=== PATIENT | male | born 1955 | race Caucasian/White ===

== ENCOUNTER 2018-01-14 17:01 | Outpatient (REF) | payer MEDICAID, SELFPAY ==
[2018-01-14 18:51] LABS: ALT 38 U/L (12-78); AST 21 U/L (15-37); Albumin 3.9 g/dL (3.4-5.0); Alkaline Phosphatase 109 U/L (46-116); BUN 9 mg/dL (7-18); Bilirubin, Total 0.9 mg/dL (0.2-1.0); CREATININE 0.73 mg/dL (0.70-1.30); Chloride 99 mmol/L (98-107); Glucose 100 mg/dL (70-100); Potassium 3.8 mmol/L (3.5-5.1); Sodium 136 mmol/L (136-145); Total Protein 7.5 g/dL (6.4-8.2)
== END 2018-01-14 17:21 ==
LOC: NCHCN 17:01
PROVIDERS: PCP Nurse Practitioner Family; Visit Provider Nurse Practitioner Family
DX: F10.10 Alcohol abuse, uncomplicated (principal)
CPT/HCPCS: 80053

== ENCOUNTER 2018-01-20 07:03 | Day surgery (SDC) | payer MEDICAID, SELFPAY ==
--- NOTE | 2018-01-20 06:24 | W.COLOREPORT ---
Date of service: 01/20/18 Time of Service: 08:30 Colonoscopy Report Date of procedure: 01/20/18 Pre-op diagnosis general: Screening and family history Post-op diagnosis procedure note: same (and internal hemorrhoids) Procedure: Colonoscopy Surgeon: Mima Issa Anesthesia proc note operative: MAC (Junior Oneal CRNA/ ASA 2) Estimated blood loss (mL): 0 Pathology: none sent Complications: None Disposition: same day Indications: Mr. Mendoza is a pleasant 62-year-old gentleman who was seen in the office to discuss a colonoscopy. His last colonoscopy was in 2009 and was normal. He has a family history of colon cancer. Risks, benefits, and complications were reviewed with him and he wished to proceed. No guarantees were given or implied. Prep: Miralax/Dulcolax Procedure Start Time: 08:30 Procedure End Time: 08:48 Retraction Time: 11 minutes Findings: Grade 1 internal hemorrhoids otherwise normal colonoscopy Procedure Description: After informed consent was obtained the patient was taken to the procedure room and placed in a left decubitous position. Monitors were applied and a time out was done. The patients name, date of , procedure, allergies to medications and metal in their body was reviewed. The patient was then sedated. Once sedated and comfortable a rectal exam was done. External exam was normal. Internal exam revealed a normal sphincter tone and no palpable masses. The prostate was smooth. The scope was then introduced and retroflexed. Grade 1 internal hemorrhoids were identified. The scope was then advanced to the cecum without difficulty. The TI and appendiceal orifice were identified. The prep was adequate. The scope was then slowly retracted over 11 minutes back into the rectum. The scope was removed and the patient was woken up and taken back to Same day surgery in stable condition. The patient tolerated the procedure well and there were no immediate complications. Follow up: The patient should follow up in 10 years unless they develop changes in bowel habits or other new gastrointestinal complaints.
--- NOTE | 2018-01-20 06:26 | PDOC.DSDIS_ITS ---
Discharge Plan Disposition Patient Disposition: HOME Condition: Good Discharge Details Reason For Visit: Colonoscopy Attending Provider: Mima Issa Primary Care Provider: Massiel Blanc Home Meds and New Rx's Prescriptions: Continue aspirin 325 mg tablet 325 mg PO DAILY RF: 0 multivitamin [Daily Multiple] 1 EACH tablet 1 ea PO DAILY RF: 0 ibuprofen 800 MG tablet 800 mg PO TID PRNRF: 0 BRONCHAID 60 mg PO DAILY RF: 0 diphenhydramine HCl 50 MG capsule 50 mg PO QID PRNQty: 25 RF: 0 Discontinued polyethylene glycol 3350 17 gram powder in packet 255 g PO DAILY Qty: 15 RF: 0 bisacodyl [Dulcolax (bisacodyl)] 5 mg tablet,delayed release (DR/EC) 5 mg PO ONCE Qty: 4 RF: 0 Discharge Instructions Instructions: Colonoscopy (DC), Hemorrhoids (DC) Additional Instructions: Findings: internal hemorrhoids Follow up: 10 years Please call if you develop: fevers >101.5 Nausea or Vomiting Abdominal pain that is not transient 1. Because there will be medication in your system for the next 24 hours, you may feel a little sleepy. Your coordination will be affected. Therefore: a. Do not drive or operate dangerous equipment for 24 hours. b. Do not drink alcohol beverages for 24 hours (not even beer). c. Plan to go home and rest for the day. 2. Generally there are no restrictions on your activity after a day or so has gone by, but you may feel a bit fatigued for a few days. 3 After you arrive home you may have a light meal and return to a normal diet as you can tolerate it without feeling sick to your stomach. 4. After surgery, you may feel pain or discomfort. This should be only transient , but if it persists please contact your doctor. 5. If there are any questions regarding the findings of your procedure, please feel free to contact your doctor. 6. If you are unable to contact your doctor with a problem, contact the hospital at [phone]. 7. Continue all your regular medications unless directed otherwise. I understand the above instructions and have no questions. Signature of Patient or Responsible Adult Escort Date/Time Name of Responsible Adult Escort Signature of Nurse Date/Time Activity:: Activity as Tolerated Diet:: high fiber diet Discharge Orders Discharge Orders: Discharge Order (Routine); Ordered 01/20/18 Ordered By: Mima Issa DS: Diagnosis Discharge Diagnosis (1) Internal hemorrhoids: Status: Acute (2) S/P colonoscopy: Status: Acute (3) Family history of colon cancer in father: Status: Chronic
--- NOTE | 2018-01-20 06:36 | HPE_ITS ---
Date of service: 01/20/18 Assessment and Plan (1) Family history of colon cancer in father: Current visit: No Status: Chronic (2) Encounter for screening colonoscopy: Current visit: No Status: Acute P\\ Colonoscopy under sedation Risks, benefits and complications have been reviewed. Complications include but are not limited to bleeding, pain, perforation, missed small lesion/ polyp, sore throat, aspiration and adverse reaction to the medications. Questions were entertained and answered to their satisfaction and they wished to proceed. No guarantees were given or implied. History of Present Illness Narrative: 61 y/o male with history of Factor V Leiden and JAUN presents for colonoscopy screening pre-op. His last screening was in September 2009, with Dr. Roberts which was unremarkable. He is only a 5 year follow up plan due to his positive family history of colon cancer in his father. He denies any changes in bowel habits including bloody or black tarry stools, abdominal pain, diarrhea or constipation. He denies constitutional symptoms. He recently had carpal tunnel surgery on 2017. He is currently taking aspirin 325mg daily and was instructed he must continue this for a total of 5 weeks following his surgery. He denies chest pain, palpitations, dyspnea or dyspnea with exertion. He denies prior history or family history of adverse reactions or complications with anesthesia. There have been no changes in his health since he was last seen. Review of Systems ENT Denies dysphagia Cardiovascular Denies rapid heart rate and Denies irregular heart rhythm Respiratory Denies cough Gastrointestinal Denies abdominal pain, Denies dysphagia and Denies nausea PFSH Family History Other Alcohol abuse Colon cancer Pancreatitis Medical History Alcohol abuse Anemia Avascular necrosis of bones of both hips Breast pain, left Carpal tunnel syndrome, bilateral Degenerative joint disease of both hips Depressive disorder Diverticulitis Factor V Leiden Family history of colon cancer Hemorrhoids Hx of skin cancer, basal cell Hyperlipidemia Impotence Left foot pain Opioid abuse Rhinitis, allergic Right shoulder pain Sinusitis Sleep apnea Tobacco use Social History Smoking/Tobacco Use Status: Former Tobacco Use Surgical History excision skin lesion right foot surgery right toe fusion Meds Home Medications Medication Instructions Recorded Confirmed Type diphenhydramine HCl 50 mg PO QID PRN #25 cap 07/22/14 01/20/18 Rx Bronchaid 60 mg PO DAILY 03/29/15 01/20/18 History ibuprofen 800 mg PO TID PRN tab-cap 03/29/15 01/20/18 History multivitamin [Daily Multiple 1 ea PO DAILY 03/29/15 01/20/18 History Vitamin] aspirin 325 mg tablet 325 mg PO DAILY 12/06/17 01/20/18 History bisacodyl 5 mg tablet,delayed 5 mg PO ONCE #4 tab 12/06/17 12/06/17 Rx release polyethylene glycol 3350 17 gram 255 g PO DAILY #15 each 12/06/17 12/06/17 Rx oral powder packet Allergies Allergy/AdvReac Type Severity Reaction Status Date / Time ragweed pollen Allergy Mild Unverified 01/20/18 07:17 sulfamethoxazole Allergy Unknown Unverified 01/20/18 07:17 [From Bactrim] trimethoprim [From Bactrim] Allergy Unknown Unverified 01/20/18 07:17 cephalexin Allergy Skin Rash Unverified 01/20/18 07:17 epinephrine [From Tasha-Phrine] Allergy Unverified 01/20/18 07:17 almonds Allergy Unknown Uncoded 01/20/18 07:17 Exam Const General: healthy appearing Resp Effort & Inspection: normal respiratory effort Auscultation: clear to auscultation bilaterally Cardio Rate: regular rate Rhythm: regular rhythm Heart Sounds: no click, no gallops and no murmurs
[2018-01-20 07:17] VITALS: BP 128/83; PULSE 96; RESP 20; TEMP 37.1; O2SAT 97
[2018-01-20] MEDS: Lactated Ringers 1,000 ML 80 ML IV (07:42)
[2018-01-20 09:46] VITALS: BP 130/70; PULSE 91; RESP 16; TEMP 37; O2SAT 95
== END 2018-01-20 09:55 | disposition home or self-care (01) ==
LOC: SUR 07:04
PROVIDERS: PCP Nurse Practitioner Family; Visit Provider Surgery
PROC: 0DJD8ZZ Inspection of Lower Intestinal Tract, Via Natural or Artificial Opening Endoscopic (ICD-10-PCS; CPT 45378; principal; 2018-01-20 08:30)
DX: Z12.11 Encounter for screening for malignant neoplasm of colon (principal); Z80.0 Family history of malignant neoplasm of digestive organs; K64.0 First degree hemorrhoids; G47.33 Obstructive sleep apnea (adult) (pediatric)
CPT/HCPCS: 45378; NC

== ENCOUNTER 2018-07-01 01:37 | Outpatient (CLI) | payer MEDICAID, SELFPAY ==
[2018-07-01 08:50] LABS: Abs Immature Grans 0.01 k/cumm (0.0-0.09); Absolute Basophil Count 0.01 k/cumm (0.0-0.2); Absolute Eosinophil Count 0.16 k/cumm (0.0-0.7); Absolute Lymphocyte Count 2.17 k/cumm (1.2-3.4); Absolute Monocyte Count 0.75 k/cumm (0.11-0.7); Basophils % 0.2; Eosinophils % 2.8; HCT 40.5 % (40.0-50.0); HGB 13.7 g/dL (13.5-17.5); Immature Grans % 0.2; Lymphocytes % 38.1; Mean Corp. HGB Concentration 33.8 g/dL (32.0-36.0); Mean Corpuscular Hemoglobin 32.7 pg (27.0-33.0); Mean Corpuscular Volume 96.7 fL (80-95); Mean Platelet Volume 9.1 fL (8.0-11.0); Monocytes % 13.2; Neutrophils % 45.5; Platelet Count 240 x1000/uL (130-400); RBC 4.19 m/cumm (4.50-6.00); RBC Distribution Width 11.9 % (11.8-14.1)
[2018-07-01 09:56] LABS: ALT 31 U/L (12-78); AST 20 U/L (15-37); Albumin 3.8 g/dL (3.4-5.0); Alkaline Phosphatase 77 U/L (46-116); Anion Gap 10.7 mmol/L (3-11); BUN 22 mg/dL (7-18); Bilirubin, Total 0.6 mg/dL (0.2-1.0); CO2 26.3 mmol/L (21.0-32.0); CREATININE 0.96 mg/dL (0.70-1.30); Calcium 9.1 mg/dL (8.5-10.1); Chloride 105 mmol/L (98-107); Cholesterol 231 mg/dL (50-200); Glucose 93 mg/dL (70-100); HDL Cholesterol 61 mg/dL (40-60); LDL CHOLESTEROL 147 mg/dL (<100); Potassium 4.4 mmol/L (3.5-5.1); Sodium 142 mmol/L (136-145); Total Protein 6.9 g/dL (6.4-8.2); Triglyceride 117 mg/dL (30-150)
== END 2018-07-01 01:57 ==
PROVIDERS: PCP Nurse Practitioner Family; Visit Provider Nurse Practitioner Family
DX: H53.2 Diplopia (principal); M62.830 Muscle spasm of back; Z00.00 Encounter for general adult medical examination without abnormal findings
CPT/HCPCS: 36415; 80053; 80061; 83721; 85025

== ENCOUNTER 2018-07-24 16:37 | Outpatient (REF) | payer MEDICAID, SELFPAY ==
[2018-07-24 20:11] LABS: Absolute Basophil Count 0.02 k/cumm (0.0-0.2); Absolute Eosinophil Count 0.19 k/cumm (0.0-0.7); Absolute Lymphocyte Count 2.58 k/cumm (1.2-3.4); Absolute Monocyte Count 0.59 k/cumm (0.11-0.7); Basophils % 0.4; Eosinophils % 3.4; HCT 38.1 % (40.0-50.0); HGB 12.6 g/dL (13.5-17.5); Lymphocytes % 46.2; Mean Corp. HGB Concentration 33.1 g/dL (32.0-36.0); Mean Corpuscular Hemoglobin 32.5 pg (27.0-33.0); Mean Corpuscular Volume 98.2 fL (80-95); Mean Platelet Volume 10.3 fL (8.0-11.0); Monocytes % 10.6; Neutrophils % 39.4; Platelet Count 232 x1000/uL (130-400); RBC 3.88 m/cumm (4.50-6.00); RBC Distribution Width 11.8 % (11.8-14.1); White Blood Cell Count 5.58 k/cumm (4.4-10.8)
[2018-07-24 22:00] LABS: ALT 34 U/L (12-78); AST 19 U/L (15-37); Alkaline Phosphatase 65 U/L (46-116); Anion Gap 9.6 mmol/L (3-11); BUN 10 mg/dL (7-18); Bilirubin, Total 0.7 mg/dL (0.2-1.0); CO2 26.4 mmol/L (21.0-32.0); CREATININE 0.79 mg/dL (0.70-1.30); Calcium 9.1 mg/dL (8.5-10.1); Chloride 102 mmol/L (98-107); Folate 18.6 ng/mL (8.6-20.0); Glucose 84 mg/dL (70-100); Potassium 4.9 mmol/L (3.5-5.1); Sodium 138 mmol/L (136-145); Total Protein 6.8 g/dL (6.4-8.2); Vitamin B12 342 pg/mL (193-986)
[2018-07-24 22:53] LABS: Albumin 3.9 g/dL (3.4-5.0)
[2018-07-27 13:00] LABS: HIV-1/2 Ag & Ab Screen Negative (NEGAT)
[2018-07-28 10:45] LABS: HBs Antibody, Quant <3.1 mIU/mL; Hepatitis B Surface Ab Negative
[2018-07-28 11:00] LABS: Hepatitis C Ab w Rflx HCV PCR Negative (NEGAT)
[2018-07-28 11:13] LABS: Hepatitis B Surface Ag Negative (NEGAT)
[2018-07-28 11:46] LABS: Syphilis Serology (RPR) Negative (Negative)
[2018-07-28 13:46] LABS: Chlamydia Result Negative; GC Result Negative; Specimen Description URINE
== END 2018-07-24 16:57 ==
LOC: NCHCN 16:37
PROVIDERS: PCP Nurse Practitioner Family; Visit Provider Nurse Practitioner Family
DX: D53.9 Nutritional anemia, unspecified (principal); Z11.59 Encounter for screening for other viral diseases; Z11.4 Encounter for screening for human immunodeficiency virus [HIV]; Z11.3 Encounter for screening for infections with a predominantly sexual mode of transmission; Z13.228 Encounter for screening for other metabolic disorders; Z13.0 Encounter for screening for diseases of the blood and blood-forming organs and certain disorders involving the immune mechanism
CPT/HCPCS: 80053; 86706; 86803; 87340; 87389; 87491; 87591; 82607; 82746; 85025; 86592

== ENCOUNTER 2018-08-07 10:31 | Outpatient (REF) | payer MEDICAID, SELFPAY ==
[2018-08-07 13:31] LABS: Abs Immature Grans 0.01 k/cumm (0.0-0.09); Absolute Basophil Count 0.03 k/cumm (0.0-0.2); Absolute Eosinophil Count 0.27 k/cumm (0.0-0.7); Absolute Lymphocyte Count 2.14 k/cumm (1.2-3.4); Absolute Monocyte Count 0.83 k/cumm (0.11-0.7); Absolute Neutrophil Count 1.98 k/cumm (1.2-6.7); Basophils % 0.6; Eosinophils % 5.1; HGB 12.7 g/dL (13.5-17.5); Immature Grans % 0.2; Lymphocytes % 40.7; Mean Corp. HGB Concentration 33.4 g/dL (32.0-36.0); Mean Corpuscular Hemoglobin 32.7 pg (27.0-33.0); Mean Corpuscular Volume 97.9 fL (80-95); Mean Platelet Volume 9.6 fL (8.0-11.0); Monocytes % 15.8; Neutrophils % 37.6; Platelet Count 239 x1000/uL (130-400); RBC 3.88 m/cumm (4.50-6.00); White Blood Cell Count 5.26 k/cumm (4.4-10.8)
[2018-08-07 14:11] LABS: Vitamin B12 389 pg/mL (193-986)
[2018-08-07 14:14] LABS: Folate > 20.0 ng/mL (8.6-20.0)
== END 2018-08-07 10:51 ==
LOC: NCHCN 10:31
PROVIDERS: PCP Nurse Practitioner Family; Visit Provider Nurse Practitioner Family
DX: D53.9 Nutritional anemia, unspecified (principal); F10.11 Alcohol abuse, in remission; D68.51 Activated protein C resistance
CPT/HCPCS: 81240; 85300; 85303; 85306; 85610; 85613; 85730; 85732; 86147; 81241; 82607; 82746; 85025; 85240; 85379

== ENCOUNTER 2019-01-12 14:10 | Outpatient (CLI) | payer MEDICAID, SELFPAY ==
--- NOTE | 2019-01-12 12:19 | DI.RAD_ITS ---
EXAM: XR WRIST LT COMP NAVICULAR INDICATION: PAIN AND SWELLOING LT WRIST M25.532, 6-8 WEEKS AFTER FALL ONTO OUTSTRECHED. COMPARISON: No exams were available for comparison TECHNIQUE: 2D digital imaging was performed. FINDINGS: There is a small osseous density adjacent to the distal and radial aspect of the scaphoid. This is i ndeterminate but a small avulsed fracture fragment cannot be excluded. No other fractures or disloca tions are present. Moderate degenerative changes are seen at the 1st carpometacarpal joint and the a rticulation between the scaphoid and the quadrangular bones. Vascular calcifications are present. IMPRESSION: 1. Small ossific density adjacent to the distal and radial aspect of the scaphoid. This is age indet erminate. An avulsed fracture fragment cannot be excluded. 2. Degenerative changes seen in the left wrist.
== END 2019-01-12 14:30 ==
PROVIDERS: PCP Nurse Practitioner Family; Visit Provider Nurse Practitioner Family
DX: M25.532 Pain in left wrist (principal); M19.032 Primary osteoarthritis, left wrist
CPT/HCPCS: 73110

== ENCOUNTER 2019-05-18 07:22 | Day surgery (SDC) | payer MEDICAID, SELFPAY ==
[2019-05-18 07:37] VITALS: BP 107/64; PULSE 73; RESP 16; TEMP 36.4; O2SAT 96
[2019-05-18] MEDS: Lactated Ringers 1,000 ML 80 ML IV (08:27)
--- NOTE | 2019-05-18 09:20 | SUR.PHASEI ---
Verbal order from Dr Padgett for pt to receive Ancef as prescribed, despite stated allergy. Pharmacy phone and they will enter.
[2019-05-18] MEDS: ceFAZolin 2 GM/50 ML BAG IVPB (10:03)
--- NOTE | 2019-05-18 11:00 | PDOC.DSDIS_ITS ---
Discharge Plan Disposition Patient Disposition: HOME Condition: Good Discharge Details Reason For Visit: L Trapezial resectional arthroplasty. Attending Provider: Yohan Padgett Primary Care Provider: Hema Godwin Home Meds and New Rx's Prescriptions: New oxycodone-acetaminophen 5-325 mg tablet 1 tab PO Q6H PRN (Reason: pain) Qty: 10 RF: 0 Continued omega-3 fatty acids [Fish Oil Concentrate] 1,000 mg capsule 1,000 mg PO DAILY RF: 0 elderberry fruit 200 mg capsule 200 mg PO DAILY RF: 0 prednisone 5 mg tablet 5 mg PO DAILY Qty: 30 RF: 1 multivitamin [Daily Multiple] 1 EACH tablet 1 ea PO DAILY RF: 0 ibuprofen 800 MG tablet 800 mg PO TID PRNRF: 0 BRONCHAID 60 mg PO DAILY RF: 0 aspirin 81 mg Tablet,Chewable 81 mg PO PRN PRNRF: 0 Discharge Instructions Additional Instructions: Elevate L hand above heart level as much as possible for next 48 hours. Wiggle fingers L hand 10 times/hour when awake to prevent swelling. Keep dressings and splint dry and in place until return. Return to 's office in 2 weeks. Take ibuprofen 800 mg 3 times/day to decrease inflammation and pain. Take oxycodone for breakthru pain, if needed. Referrals: Yohan Padgett MD [ [facility] STAFF PHYSICIAN] - (f/u in 2 weeks) Equipment/Supplies: Splint Activity:: Activity as Tolerated Remove Dressings/Wound Care:: Do Not Remove Shower/Bathe:: Cover Diet:: As Tolerated Discharge Orders Discharge Orders: Discharge Order (Routine); Ordered 05/18/19 Ordered By: Yohan Padgett DS: Diagnosis Discharge Diagnosis (1) Arthritis of carpometacarpal (CMC) joint of left thumb: Status: Acute
[2019-05-18 11:25] VITALS: BP 122/74; PULSE 79; RESP 18; TEMP 36.3; O2SAT 98
[2019-05-18 11:30] VITALS: BP 142/68; PULSE 75; RESP 14; TEMP 36.3; O2SAT 98
[2019-05-18 11:35] VITALS: BP 148/91; PULSE 70; RESP 14; TEMP 36.3; O2SAT 97
[2019-05-18 12:24] VITALS: BP 113/61; PULSE 68; RESP 16; TEMP 37; O2SAT 96
--- NOTE | 2019-05-19 11:33 | ROE_ITS ---
DATE OF PROCEDURE: May 18, 2019 PREOPERATIVE DIAGNOSIS: Osteoarthritis of the CMC joint, left thumb. POSTOPERATIVE DIAGNOSIS: Same. PROCEDURE: Left trapezial resection arthroplasty. Application of short-arm radial thumb spica splin t. ANESTHESIA: IV Regional, Eliot Montero CRNA SURGEON: Yohan Padgett M.D. CONDUIT BENDER: Carroll Beatty INDICATIONS: This is a 63-year-old white male with endstage osteoarthritis of the CMC joint of his l eft thumb. He has reached a point where the pain is limiting use of his left hand. Splinting is no longer helping. Trapezial resection arthroplasty was recommended to alleviate his pain and hopefully improve the function in his left hand. The risks and complications of the procedure have been expla ined to the patient in detail preoperatively. PROCEDURE: The patient was taken to the operating room on 05/18/2019 where he was placed supine on e operating table. An IV regional anesthetic was administered to the left upper extremity. Once goo d anesthesia was obtained, the left hand, wrist and forearm were prepped and draped free in the usual sterile fashion. I made an incision directly over the extensor tendons of the first dorsal extensor compartment at the base of the thumb metacarpal. The incision was carried down through the skin and subcu to the tendo ns. The incision was about three inches in length. An incision was made then just ulnar to the exte nsor tendons through the capsule of the CMC joint. The trapezium was subperiosteally exposed. Usin g an oscillating saw, I transected the trapezium parallel to its proximal base. I left a one millime ter wafer of trapezial bone to articulate with the scaphoid. Using the oscillating saw and then a all osteotome and a mallet, I was able to resect the remainder of the trapezium in a piecemeal fashio n. The wound was irrigated with saline solution. A pursestring suture was used to bring the capsule in approximation between the thumb metacarpal and the remainder of the trapezium. The capsule of th e CMC joint was repaired with interrupted [id number] sutures of #2-0 Vicryl suture. The thumb m etacarpal was then held in extension and then a tenodesis of the extensor pollicis brevis and abducto r pollicis longus to the capsule was performed with interrupted spuglv-um-swsli sutures of #2-0 Vicry l. I checked the tenodesis and passively I was able to bring the thumb tip to the base of the little finger, indicating that the tenodesis was tensioned properly. The wound margins were infiltrated wi th 0.5% Marcaine with an epinephrine solution. The subcu was approximated with a few interrupted #2- 0 Vicryl sutures. The skin edges were approximated with a running subcuticular suture of #4-0 Monocr yl. This was supplemented by tissue glue and Steri-Strips. The wound was dressed with Xeroform gauz e, sterile gauze 4x4's, ABD pads and wrapped with a Kerlix bandage. A fiberglass radial thumb spica splint was fashioned and was applied with a 3-inch ISABEL bandage to support the thumb. The tourniquet was released. IV regional anesthesia was reversed without complication. There was no breakthrough b leeding to the dressings. The patient was discharged to the Day Surgery Unit in good condition. The patient was discharged home from the Day Surgery Unit when fully recovered from his IV regional a nesthesia. He was given instructions to try to elevate his left hand above heart level as much as po ssible for the next 48 hours. He was encouraged to wiggle his fingers ten times an hour while awake to prevent swelling. He is to keep the dressings and splint dry and in place until he follows up lyndon flores in two weeks in the office. He will continue taking ibuprofen 800 mg at home three times a day to help with inflammation and swelling. He was given a prescription for breakthrough pain of Hydroco done with APAP 5/325, one tablet every six hours, if needed.
== END 2019-05-18 12:50 | disposition home or self-care (01) ==
PROVIDERS: PCP Nurse Practitioner Family; Visit Provider Orthopaedic Surgery
PROC: (CPT 25447; principal; 2019-05-18 08:30)
DX: M18.32 Unilateral post-traumatic osteoarthritis of first carpometacarpal joint, left hand (principal); T14.90XS Injury, unspecified, sequela; W19.XXXS Unspecified fall, sequela; G47.33 Obstructive sleep apnea (adult) (pediatric)
CPT/HCPCS: 25447; J0690; J1885; J2250

== ENCOUNTER 2019-07-23 11:21 | Emergency (ER) | payer MEDICAID, SELFPAY ==
[2019-07-23 11:32] VITALS: BP 172/93; PULSE 91; RESP 16; TEMP 37.1; O2SAT 97
--- NOTE | 2019-07-23 11:46 | ED.GENADUL_ITS ---
Discharge Plan Disposition Patient Disposition: HOME Condition: Good Discharge Details Chief Complaint: Abd Prob Clinical Impression: Hernia, inguinal, left, Urinary hesitancy Primary Care Provider: Hema Godwin ED Provider: Isaac Baez Home Meds and New Rx's Prescriptions: New tamsulosin [Flomax] 0.4 mg capsule 0.4 mg PO DAILY 14 Days Qty: 14 RF: 0 Continued omega-3 fatty acids [Fish Oil Concentrate] 1,000 mg capsule 1,000 mg PO DAILY RF: 0 elderberry fruit 200 mg capsule 200 mg PO DAILY RF: 0 prednisone 5 mg tablet 5 mg PO DAILY Qty: 30 RF: 1 multivitamin [Daily Multiple] 1 EACH tablet 1 ea PO DAILY RF: 0 ibuprofen 800 MG tablet 800 mg PO TID PRNRF: 0 BRONCHAID 60 mg PO DAILY RF: 0 oxycodone-acetaminophen 5-325 mg tablet 1 tab PO Q6H MDD 20 PRN (Reason: pain) Qty: 10 RF: 0 aspirin 81 mg Tablet,Chewable 81 mg PO PRN PRNRF: 0 Discharge Instructions Instructions: Enlarged Prostate (BPH) (ED), Inguinal Hernia (ED) Additional Instructions: At this time your hernia shows no evidence of incarceration or strangulation which are the concerning things that we talked about. Please avoid any significant heavy lifting greater than 10 pounds. Please avoid any straining. If you notice the hernia gets worse, feels like it gets stuck, becomes red or painful return immediately. We have placed a surgical referral for potential future surgical options. Their office will contact you. In regards to your mild urinary hesitancy, please take the Flomax to see if this makes any significant change and follow-up closely with your primary care provider. I suspect this is from your mild prostate hypertrophy that I could feel on exam. If you notice any worsening of your symptoms, or any new symptoms such as vomiting, diarrhea, fever, chills, shortness of breath, chest pain, numbness, weakness, or fainting , please return immediately to the emergency department for reevaluation. Please follow up with your primary care provider as soon as possible for reassessment and reevaluation. As always, it was a pleasure participating in your medical care today. 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 Patient states that over the last 2 to 3 weeks he has noticed mild bulge in the left groin that comes and goes, often when standing or straining. He is able to push it back in, and does well with this. He has seen his primary care provider who felt that it was a hernia. As it has continued to want to be checked out today. Currently he states that the bulge is not bad, he denies any significant pain, he has been having regular bowel movements, no diarrhea no blood, no fever, chills, night sweats or weight loss. He denies any blood in his stool. He denies any melena. On a seemingly unrelated topic the patient also does note that over the last few months to years he has had mild increase in hesitancy for urination, as well as slight difficulty controlling his stream. He denies any recent prostate exams. He denies any history of prostate issues. He denies any dysuria, flank pain, hematuria, fever or chills. No other complaints at this time. No other modifying factors. He denies chest pain, shortness of breath, vomiting, change in bowel movement nature, redness at the site of the bulge on the left, or other complaints. Physical exam demonstrates an easily reducible mild bulge in the left groin, it extends midway down the left inguinal canal, does not extend into the scrotum with Valsalva. No scrotal mass. Normal testicles, no signs of testicular torsion clinically. Normal cremasteric reflex. Left groin minimal mass is easily reducible and nontender. No bowel sounds in the groin. Prostate exam demonstrates mild prostate hypertrophy, but no significant nodules that I can appreciate or other abnorma lities currently. Remainder of exam is otherwise unremarkable. At this time signs and symptoms are clinically consistent with a mild reducible nonincarcerated non-strangulated inguinal hernia that is likely just omentum and not bowel. In conjunction with mild prostate hypertrophy. No red flag symptoms of weight loss fever chills night sweats to suggest mass cancer or malignancy. I did discuss imaging options for the patient and at this time through notable discussion, weighing the risks and benefits, and a shared decision making process the patient has refused imaging at this time. Patient is of an appropriate age to make decisions. The patient is of sound mind, appears clinically sober, and has capacity to make decisions by my clinical exam. Respecting the patient's wishes we will hold off on imaging. Additionally currently I see no current clinical indication for emergent imaging. Patient will be discharged home, we will place surgical referral for potential future surgical evaluation and management of the mild inguinal hernia. Also start the patient on Flomax, and recommend close follow-up with his PCP. Discussed red flags which to return. I have extensively reviewed the treatment plan and discharge instructions with the patient. I have addressed all patient concerns at this time. The patient was made aware of what symptoms to monitor for that would warrant a return to the emergency department. Discussed the plan with the patient, they demonstrate verbal understanding and agreement with our assessment and plan at this time. HPI General Date/Time Provider Initiated Documentation: 07/23/19 11:30 . 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 Patient states that over the last 2 to 3 weeks he has noticed mild bulge in the left groin that comes and goes, often when standing or straining. He is able to push it back in, and does well with this. He has seen his primary care provider who felt that it was a hernia. As it has continued to want to be checked out today. Currently he states that the bulge is not bad, he denies any significant pain, he has been having regular bowel movements, no diarrhea no blood, no fever, chills, night sweats or weight loss. He denies any blood in his stool. He denies any melena. On a seemingly unrelated topic the patient also does note that over the last few months to years he has had mild increase in hesitancy for urination, as well as slight difficulty controlling his stream. He denies any recent prostate exams. He denies any history of prostate issues. He denies any dysuria, flank pain, hematuria, fever or chills. No other complaints at this time. No other modifying factors. He denies chest pain, shortness of breath, vomiting, change in bowel movement nature, redness at the site of the bulge on the left, or other complaints. Related Data Home Medications Medication Instructions Recorded Confirmed Bronchaid 60 mg PO DAILY 03/29/15 05/18/19 ibuprofen 800 mg PO TID PRN tab-cap 03/29/15 05/18/19 multivitamin [Daily Multiple] 1 ea PO DAILY 03/29/15 05/18/19 elderberry fruit 200 mg capsule 200 mg PO DAILY cap 04/01/19 05/18/19 omega-3 fatty acids 1,000 mg 1,000 mg PO DAILY 04/01/19 05/18/19 capsule prednisone 5 mg tablet 5 mg PO DAILY #30 tab 04/01/19 05/18/19 aspirin 81 mg PO PRN PRN 05/14/19 05/18/19 oxycodone-acetaminophen 5 mg-325 1 tab PO Q6H PRN #10 tab MDD 20 05/18/19 mg tablet tamsulosin [Flomax] 0.4 mg PO DAILY 14 Days #14 cap 07/23/19 Previous Rx's Medication Instructions Recorded prednisone 5 mg tablet 5 mg PO DAILY #30 tab 04/01/19 oxycodone-acetaminophen 5 mg-325 1 tab PO Q6H PRN #10 tab MDD 20 05/18/19 mg tablet tamsulosin [Flomax] 0.4 mg PO DAILY 14 Days #14 cap 07/23/19 Allergies Allergy/AdvReac Type Severity Reaction Status Date / Time ragweed pollen Allergy Mild Verified 06/02/19 10:16 sulfamethoxazole Allergy Unknown Verified 06/02/19 10:16 [From Bactrim] trimethoprim [From Bactrim] Allergy Unknown Verified 06/02/19 10:16 cephalexin Allergy Skin Rash Verified 06/02/19 10:16 epinephrine [From Tasha-Phrine] Allergy Verified 06/02/19 10:16 almonds Allergy Unknown Uncoded 06/02/19 10:16 General Stated Complaint: Cellulitis SHIRA: 3 Review of Systems All systems reviewed & are unremarkable except as noted in HPI and below PFSH Social History Smoking/Tobacco Use Status: Former Tobacco Use Quit Date: 03/04/06 Alcohol Intake: former Drug use: Never Substance use type: does not use Current gender identity: male Do you feel safe at home: Yes Do you feel safe in your relationship?: Yes Exam Narrative Exam Narrative: 1.Const: Well-nourished, Well-developed, appearing stated age 2.Eyes: PERRL, no conjunctival injection, and symmetrical lids. 3.ENT: Atraumatic external nose and ears. Moist MM. Neck: Symmetric, trachea midline, No thyromegaly. 4.CVS: +S1/S2, No murmurs or gallops. Peripheral pulses 2+ and equal in all extremities. Brisk capillary refill in all extremities. 5.RESP: Unlabored respiratory effort. Clear to auscultation bilaterally. No wheezes rales or rhonchi 6.GI: Soft, Nontender/Nondistended, No hepatosplenomegaly. No guarding or rebound. No pain at McBurney's point, negative Munoz sign. The patient's left inguinal region does demonstrate very mild bulging on the left groin that is easily reducible. It travels to midway for the left inguinal canal. No extension into the scrotum with Valsalva. No testicular tenderness. No atypical testicular lie, normal cremasteric reflex bilaterally. No crepitus, bruising redness or swelling. Rectal exam and genital exam were both performed with female nurse at bedside, rectal exam demonstrates normal prostate with mild hypertrophy, no firm nodular lesions that I can appreciate at this time. No significant tenderness to suggest prostatitis. Anterior pelvic exam demonstrates no enlarged bladder or signs of retention. Penis itself is nontender. 7.MSK: Normocephalic/Atraumatic, Extremities w/o deformity or ttp No cyanosis or clubbing, Normal movement of all extremities 8.Skin: Warm, Dry. No rashes or lesions. 9.Neuro: sand bobber II-XII grossly intact. Sensation grossly intact, no focal neurologic deficits. 10.Psych: (AAO) x3. Appropriate mood and affect Course Vital Signs Vital signs: Vital Signs Temperature 37.1 C 07/23/19 11:32 Pulse 91 H 07/23/19 11:32 Respiratory Rate 16 07/23/19 11:32 Blood Pressure 172/93 H 07/23/19 11:32 Pulse Oximetry 97 07/23/19 11:32 Temperature 37.1 C 07/23/19 11:32 Pulse 91 H 07/23/19 11:32 Respiratory Rate 16 07/23/19 11:32 Respiratory Effort Non-Labored 07/23/19 11:36 Blood Pressure 172/93 H 07/23/19 11:32 Blood Pressure Position Sitting 07/23/19 11:32 Pulse Oximetry 97 07/23/19 11:32 Oxygen Delivery Method Room Air 07/23/19 11:32 Oxygen Flow Rate 0 07/23/19 11:32 Pain Level 3 07/23/19 11:38
--- NOTE | 2019-07-23 13:39 | NUR.NOTE ---
Nursing Note: Referral [facility] for follow up. Renée Dash
== END 2019-07-23 11:59 | disposition home or self-care (01) ==
PROVIDERS: Emergency Provider Student in an Organized Health Care Education/Training Program; PCP Nurse Practitioner Family
DX: K40.90 Unilateral inguinal hernia, without obstruction or gangrene, not specified as recurrent (principal); N40.1 Benign prostatic hyperplasia with lower urinary tract symptoms; R39.11 Hesitancy of micturition
CPT/HCPCS: 99283

== ENCOUNTER 2019-08-10 08:20 | Outpatient (CLI) | payer MEDICAID, SELFPAY ==
[2019-08-11 02:41] LABS: COVID-19 RT-PCR UVMMC Result Negative (Negative)
== END 2019-08-10 08:40 ==
PROVIDERS: PCP Nurse Practitioner Family; Visit Provider Surgery
DX: Z11.59 Encounter for screening for other viral diseases (principal); Z01.818 Encounter for other preprocedural examination
CPT/HCPCS: U0003

== ENCOUNTER 2019-08-12 06:31 | Day surgery (SDC) | payer MEDICAID, SELFPAY ==
[2019-08-12] VITALS (7 sets, daily range): BP systolic 109–128; BP diastolic 66–74; PULSE 75–99; RESP 16–27; TEMP 36.6–36.9; O2SAT 94–99
--- NOTE | 2019-08-12 06:08 | ROE_ITS ---
Date of service: 08/12/19 Time of Service: 09:00 Operative Note Operative Note DATE OF PROCEDURE: 08/12/19 PRE-OP DIAGNOSIS: Left inguinal hernia POST-OP DIAGNOSIS: other (direct and indirect left inguinal hernia, enlarged ly mph node) PROCEDURE: Left inguinal hernia repair with mesh Lymph node excisional biopsy SURGEON: Mima Issa REGULATORY COMPLIANCE OFFICER: Vaibhav Dillon ANESTHESIA: GETA (ASA 2/ Sugar Jon CRNA) and regional (TAP block) ESTIMATED BLOOD LOSS: 5 PATHOLOGY: none sent COMPLICATIONS: Other (lymph node) Patient was transported to: same day Patient's condition: stable Implants: Bard mesh and Plug Indications: 63 year old male with a small reducible left inguinal hernia. He is having discomfort with activity and would like to have it fixed. We reviewed the type of hernia that he has as well as open hernia repair. A pamphlet was provided to the patient. We also discussed new COVID-19 measures that the hospital has been in place including testing prior to surgery. I reviewed testing with the patient as well as post testing quarantine at home as much as possible. We also discussed pain control with a TAP block. Discussed use of Tylenol and Ibuprofen post-op only as well as ice. Findings: Large direct and indirect hernia Enlarged inguinal hernia Procedure Description: After informed consent was obtained the patient was taken to the operating room and placed in a supine position. Monitors and SCDs were applied and a timeout was done. The patient's name, date of , procedure type, procedure site, allergies to medications, preoperative antibiotic, and DVT prophylaxis were all reviewed. Fire risk was assessed. Patient was sedated and an LMA was placed. Next anesthesia did a tap block on the left side under ultrasound guidance. Please see their separate dictation. Once anesthesia was done the hair in the left inguinal area was clipped and then the abdomen was prepped and draped in a sterile surgical fashion. 1% lidocaine was injected into the dermis in the left lower quadrant. An incision was made with a 10 blade in the left lower quadrant. Dissection was done with cautery through the subcutaneous tissues and Charlette's fascia down to the external oblique fascia. Just past the external ring there was a mass. It was 3 cm x 2 cm and felt rubbery like an enlarged lymph node. It was resected and placed in formalin. The external ring was identified and the external oblique fascia was opened sharply through the external ring. The cut fascia was grasped with hemostats the cord structures were identified and a Gennaro drain was placed around them. The cremasteric muscle was dissected away from the cord structures using both cautery and blunt dissection. A hernia sac was identified and removed from the cord structures using blunt dissection. The hernia sac was reduced back into the peritoneum. A large plug was placed into the internal ring and secured with 2-0 proline. The large flat mesh was then attached to the conjoined tendon using a 2-0 Prolene double armed suture. The ilioinguinal nerve was identified and cut. The mesh was secured laterally and medially with a 2-0 Prolene, with a running suture. The tails of the mesh were wrapped around the cord structures effectively cinching down the internal ring. Once the mesh was secured the tissues were irrigated with some normal saline. There was some bleeding identified and this was cauterized. There was a lot of oozing due to the patient being on Aspirin. Floseal was applied to the tissues. The external oblique fascia was re-approximated using 2-0 Vicryl running suture. The S carpa's fascia was re-approximated using interrupted 3-0 Vicryl. The dermis was re-approximated with a running 4-0 Vicryl. The skin was cleaned and dried and skin affix was applied. The patient was woken up and taken back to recovery in stable condition. There were no immediate complications. Sponge, instrument and needle counts were correct at the end of the case x2.
--- NOTE | 2019-08-12 06:11 | PDOC.DSDIS_ITS ---
Discharge Plan Disposition Patient Disposition: HOME Condition: Good Discharge Details Reason For Visit: Left inguinal hernia repair Attending Provider: Mima Isas Primary Care Provider: Hema Godwin Home Meds and New Rx's Prescriptions: Continued tamsulosin [Flomax] 0.4 mg capsule 0.4 mg PO DAILY RF: 0 omega-3 fatty acids [Fish Oil Concentrate] 1,000 mg capsule 1,000 mg PO DAILY RF: 0 elderberry fruit 200 mg capsule 200 mg PO DAILY RF: 0 multivitamin [Daily Multiple] 1 EACH tablet 1 ea PO DAILY RF: 0 ibuprofen 800 MG tablet 800 mg PO TID PRNRF: 0 BRONCHAID 60 mg PO DAILY RF: 0 aspirin 81 mg Tablet,Chewable 81 mg PO DAILY RF: 0 Discharge Instructions Instructions: Inguinal Hernia Repair (DC) Additional Instructions: Activity at Home after surgery: 1. Make sure you walk outside at least 4 times per day 2. You should be able to climb a flight of stairs 3. No driving while in pain or taking pain medications 4. No strenuous activity or heavy lifting for 4 weeks Diet, Nutrition, & wound healin. Avoid alcohol until after you are recovered from your surgery 2. Make sure to eat plenty of lean protein (meat, fish, eggs, cottage cheese, beans) 3. Eat a variety of fruits and vegetables. Eat plenty of high fiber foods to avoid constipation. 4. Drink plenty of liquids to stay hydrated and avoid constipation Pain Medications: 1. Alternate Tylenol 650 mg and Ibuprofen 600 mg every 3 hours 2. If a narcotic has been prescribed take as directed only for breakthrough pain For Constipation: 1. Take Milk of Magnesia or MiraLax as needed for constipation Other: 1. You may shower daily. Do not scrub the incisions 2. Do not soak the incisions for 1 week 3. You may alternate ice and heat as needed for pain and swelling Wound Care: 1. Keep the incisions clean and dry Please call our office if you develop: 1. Fevers >101.5 2. Nausea or Vomiting 3. Worsening pain 4. Redness and thick discharge from the wounds If after hours please call the Hospital at and ask to speak to the on-call surgeon Referrals: Mima Issa MD [ [facility] STAFF PHYSICIAN] - 08/25/19 8:30 am Activity:: no lifting, pulling or pushing >20 lb x 4 weeks Shower/Bathe:: 24 hours Diet:: As Tolerated Discharge Orders Discharge Orders: Discharge Order (Routine); Ordered 08/12/19 Ordered By: Mima Issa DS: Diagnosis Discharge Diagnosis (1) Hernia, inguinal, left: Status: Acute (2) S/P left inguinal hernia repair: Status: Acute
[2019-08-12] MEDS: Acetaminophen 500 MG TAB 1000 MG PO (07:13)
[2019-08-12] MEDS: Celecoxib 200 MG CAP PO (07:13)
[2019-08-12] MEDS: Lactated Ringers 1,000 ML 80 ML IV (07:13)
[2019-08-12] MEDS: CLINDAMYCIN 900 MG/50 ML BAG 50 MG IVPB (07:25)
[2019-08-12] MEDS: Lidocaine 1% Multi-Dose 50 ML VIAL (07:55)
--- NOTE | 2019-08-12 08:05 | HERN_PTH ---
PATIENT: Italo Card LOC: [facility] U#:[id number] AGE/SX: 63/M ROOM: RE08/12/[address]: Mima Issa MD : [id number] BED: DIS: 08/12/2019 SPEC #: [id number] RECD: 08/12/19 12:01 STATUS: PAN RERoger #: [id number] SANTA: 08/12/19 08:[address]: Mima Issa DEPT: Surgical Specimen RECD BY: Yvette Casanova ENTERED: 08/12/19 12:01 SP TYPE: Hernia Sac OTHR DR: Hema Godwin Tissues: 1 - HERNIA SAC, INGUINAL Procedures: GROSS AND MICRO LEVEL 4 Comments: [id number]
[2019-08-12] MEDS: fentaNYL 100 MCG/2 ML VIAL IVP (09:50)
== END 2019-08-12 11:16 | disposition home or self-care (01) ==
PROVIDERS: PCP Nurse Practitioner Family; Visit Provider Surgery
PROC: (CPT 49505; principal; 2019-08-12 07:30)
DX: K40.90 Unilateral inguinal hernia, without obstruction or gangrene, not specified as recurrent (principal); G89.18 Other acute postprocedural pain
CPT/HCPCS: 49505; 76942; 88300; 88305; C1781; J1100; J2001; J2405; J2704; J3010

== ENCOUNTER 2019-08-13 17:16 | Emergency (ER) | payer MEDICAID, SELFPAY ==
[2019-08-13 17:28] VITALS: BP 123/60; PULSE 89; RESP 16; TEMP 36.4; O2SAT 94
[2019-08-13 17:34] VITALS: RESP 14
--- NOTE | 2019-08-13 17:35 | ED.GENADUL_ITS ---
Discharge Plan Disposition Patient Disposition: HOME Condition: Stable Discharge Details Chief Complaint: GenMedical Clinical Impression: Post-op pain, S/P left inguinal hernia repair Primary Care Provider: Hema Godwin ED Provider: Vonda Reveles Home Meds and New Rx's Prescriptions: Continued tamsulosin [Flomax] 0.4 mg capsule 0.4 mg PO DAILY RF: 0 omega-3 fatty acids [Fish Oil Concentrate] 1,000 mg capsule 1,000 mg PO DAILY RF: 0 elderberry fruit 200 mg capsule 200 mg PO DAILY RF: 0 multivitamin [Daily Multiple] 1 EACH tablet 1 ea PO DAILY RF: 0 ibuprofen 800 MG tablet 800 mg PO TID PRNRF: 0 BRONCHAID 60 mg PO DAILY RF: 0 tramadol 50 mg tablet 50 mg PO Q6H PRN (Reason: pain) Qty: 10 RF: 0 aspirin 81 mg Tablet,Chewable 81 mg PO DAILY RF: 0 Discharge Instructions Instructions: Inguinal Hernia Repair (DC) Additional Instructions: The left groin pain and bruising and swelling of your testicles are expected symptoms and signs after an inguinal hernia repair surgery. Continue to use ice as needed and directed for pain and swelling. Take the tramadol that you have at home as needed and directed for pain. You can use scrotal support to help with swelling and pain. Follow-up with general surgery as directed. Return to the emergency department if you develop any worsening or concerning symptom such as fever, vomiting, abdominal pain or any other concerns. Discharge Data Discharge Date/Time-TO BE ENTERED AT DEPARTURE: 08/13/19 18:43 Discharge Physician: Vonda Reveles Medical Decision Making 63-year-old male who is 1 day status post left inguinal hernia repair with mesh by Dr. Issa who presents for left groin pain and scrotal edema and ecchymosis. He denies any significant testicular pain. He denies any fever, vomiting or abdominal pain. He does admit to some urinary hesitancy. Left groin incision site healing well with minimal surrounding erythema. Scrotum appears ecchymotic with minimal edema but is nontender. Patient appears nontoxic. Suspect that this is expected postoperative course. Urinalysis obtained and negative. Do not see an indication for additional labs or imaging. Case discussed with surgery on-call who agrees that these symptoms and signs are expected postoperative findings. Patient advised to use scrotal support, ice, alternate Tylenol and Motrin. He has tramadol at home as needed for pain. Advised to call surgery for follow-up as directed. Medical Records Medical records reviewed: Yes I reviewed the patient's medical records. Lab Data Lab results reviewed: Yes I reviewed the patient's lab results. Labs: Laboratory Tests Range/Units 08/13/19 18:03 Urine Color (Yellow) Yellow Urine Clarity (Clear) Clear Urine pH (5-8) 6.0 Ur Specific [place] (1.005-1.025) 1.020 Urine Protein (Negative) mg/dL Negative Urine Ketones (Negative) mg/dL Negative Urine Blood (Negative) Negative Urine Nitrite (Negative) Negative Urine Bilirubin (Negative) Negative Urine Urobilinogen (Up TO 0.2) EU/dL 1.0 H Ur Leukocyte Esterase (Negative) Negative Urine Glucose (Negative) mg/dL Negative HPI General Mode of arrival: ambulatory . Date/Time Provider Initiated Documentation: 08/13/19 17:17 . Limitations to Documentation: no limitations . Information obtained by: patient . HPI Narrative: Patient is a 71-year-old male who is 1 day status post left inguinal hernia repair with Dr. Issa who presents for scrotal swelling and bruising with pain in the left groin since yesterday. Patient states he called his PCP and they advised him to come to the ER for evaluation. Patient did not contact surgery. He denies any fever, vomiting, abdominal pain, diarrhea. He states he has been able to urinate but with some hesitancy. He denies any known dysuria or hematuria. Related Data Home Medications Medication Instructions Recorded Confirmed Bronchaid 60 mg PO DAILY 03/29/15 08/13/19 ibuprofen 800 mg PO TID PRN tab-cap 03/29/15 08/13/19 multivitamin [Daily Multiple] 1 ea PO DAILY 03/29/15 08/13/19 elderberry fruit 200 mg capsule 200 mg PO DAILY cap 04/01/19 08/13/19 omega-3 fatty acids 1,000 mg 1,000 mg PO DAILY 04/01/19 08/13/19 capsule aspirin 81 mg PO DAILY 05/14/19 08/13/19 tamsulosin 0.4 mg capsule 0.4 mg PO DAILY 08/07/19 08/13/19 tramadol 50 mg tablet 50 mg PO Q6H PRN #10 tab 08/12/19 08/13/19 Previous Rx's Medication Instructions Recorded tramadol 50 mg tablet 50 mg PO Q6H PRN #10 tab 08/12/19 Allergies Allergy/AdvReac Type Severity Reaction Status Date / Time ragweed pollen Allergy Mild Verified 08/13/19 17:30 sulfamethoxazole Allergy Unknown Verified 08/13/19 17:30 [From Bactrim] trimethoprim [From Bactrim] Allergy Unknown Verified 08/13/19 17:30 cephalexin Allergy Skin Rash Verified 08/13/19 17:30 epinephrine [From Tasha-Phrine] Allergy Verified 08/13/19 17:30 almonds Allergy Unknown Uncoded 08/13/19 17:30 General Stated Complaint: GenMedical SHIRA: 3 Review of Systems All systems reviewed & are unremarkable except as noted in HPI and below Constitutional Constitutional: Reports as per HPI, Denies chills and Denies fever(s) Eyes Eyes: Denies blurry vision ENT Ears, Nose, Mouth, and Throat: Denies dizziness, Denies sore throat and Denies throat swelling Cardiovascular Cardiovascular: Denies chest pain and Denies dyspnea Respiratory Respiratory: Denies cough and Denies dyspnea Gastrointestinal Gastrointestinal: Denies abdominal pain, Denies diarrhea and Denies vomiting Genitourinary Genitourinary: Denies hematuria, Reports difficulty urinating, Denies dysuria, Reports scrotal swelling and Reports urinary hesitancy Musculoskeletal Musculoskeletal: Denies back pain and Denies numbness Integumentary/Breasts Skin/Breast: Denies lesions and Denies rash Neurologic Neurologic: Denies dizziness, Denies localized weakness and Denies numbness Allergic/Immunologic Allergic/Immunologic: Denies throat swelling [facility]LY [facility] Medical History (Updated 08/13/19 @ 18:25 by Vonda Reveles DO) Alcohol abuse Anemia Arthritis of carpometacarpal (CMC) joint of left thumb (Resolved) Avascular necrosis of bones of both hips Breast pain, left Carpal tunnel syndrome, bilateral Degenerative joint disease of both hips Depressive disorder Deviated septum (Acute) Diverticulitis Encounter for screening colonoscopy (Inactive) Current Visit- YES Factor V Leiden Family history of colon cancer Hemorrhoids Hx of skin cancer, basal cell Hyperlipidemia Impotence Internal hemorrhoids (Resolved) Left foot pain Opioid abuse Rhinitis, allergic Right shoulder pain Sinusitis Sleep apnea uses CPAP Tobacco use quit 2006 Urinary hesitancy (Inactive) Surgical History (Updated 08/13/19 @ 18:25 by Vonda Reveles DO) excision skin lesion History of carpal tunnel release (Acute) bilateral. History of hip replacement (Chronic) Bilateral/avascular necrosis. History of placement of ear tubes (Acute) History of shoulder surgery (Chronic) left rotator cuff. right foot surgery for congenital defect right toe fusion S/P colonoscopy (Resolved ~2009) 01/20/18 Social History Smoking/Tobacco Use Status: Former Tobacco Use Quit Date: 03/04/06 Alcohol Intake: former Drug use: Never Substance use type: does not use Current gender identity: male Do you feel safe at home: Yes Do you feel safe in your relationship?: Yes Exam Const General: cooperative, healthy appearing and no acute distress HENMT Head: normal to inspection Mouth: oral mucosae normal Eyes General: appearance normal, both eyes and all related structures Neck Neck: normal visual inspection Resp Effort & Inspection: normal respiratory effort and able to speak in complete sentences Cardio Rate: regular rate GI Abdomen image: 1. Incision site healing well. There is minimal surrounding erythema. There is a 2 x 2 centimeter area of ecchymosis consistent with hematoma just inferior to incision site. There is no pus drainage or active bleeding. Penis: normal penis Scrotum: ecchymosis bilaterally and edematous bilaterally (minimal) Skin General skin exam: no rashes or lesions noted Neuro General: patient alert, patient awake and patient oriented x3 Motor: muscle tone normal throughout Extrem General: normal to inspection and full ROM Psych Appearance: grossly normal Affect: normal affect Course Vital Signs Vital signs: Vital Signs Temperature 97.5 F L 08/13/19 17:28 Pulse 89 08/13/19 17:28 Respiratory Rate 16 08/13/19 17:28 Blood Pressure 123/60 08/13/19 17:28 Pulse Oximetry 94 L 08/13/19 17:28 Temperature 97.5 F L 08/13/19 17:28 Temperature Source Tympanic 08/13/19 17:28 Pulse 89 08/13/19 17:28 Respiratory Rate 16 08/13/19 17:28 Respiratory Effort Non-Labored 08/13/19 17:30 Blood Pressure 123/60 08/13/19 17:28 Blood Pressure Position Sitting 08/13/19 17:28 Pulse Oximetry 94 L 08/13/19 17:28 Oxygen Delivery Method Room Air 08/13/19 17:28 Oxygen Flow Rate 0 08/13/19 17:28 Pain Level 4 08/13/19 17:28
[2019-08-13 18:17] LABS: Bilirubin Negative (Negative); Blood Negative (Negative); Clarity Clear (Clear); Glucose Negative (Negative); Ketones Negative (Negative); Leukocyte Esterase Negative (Negative); Nitrite Negative (Negative)
== END 2019-08-13 18:43 | disposition home or self-care (01) ==
PROVIDERS: Emergency Provider Physician Assistant; PCP Nurse Practitioner Family
DX: R10.32 Left lower quadrant pain (principal); N50.89 Other specified disorders of the male genital organs; G89.28 Other chronic postprocedural pain; Y83.1 Surgical operation with implant of artificial internal device as the cause of abnormal reaction of the patient, or of later complication, without mention of misadventure at the time of the procedure
CPT/HCPCS: 99282; 81003; 99283

== ENCOUNTER 2019-08-29 12:23 | Emergency (ER) | payer MEDICAID, SELFPAY ==
[2019-08-29] VITALS (14 sets, daily range): BP systolic 112–160; BP diastolic 56–90; PULSE 56–91; RESP 16–23; TEMP 36.4–36.7; O2SAT 98–100
--- NOTE | 2019-08-29 12:39 | W.ED.GENAD ---
Discharge Plan Disposition Patient Disposition: HOME Condition: Improving Discharge Details Chief Complaint: DrugWithdr Clinical Impression: Opiate withdrawal Primary Care Provider: Hema Godwin ED Provider: Yohan Shafer Home Meds and New Rx's Prescriptions: Continued omega-3 fatty acids [Fish Oil Concentrate] 1,000 mg capsule 1,000 mg PO DAILY RF: 0 elderberry fruit 200 mg capsule 200 mg PO DAILY RF: 0 multivitamin [Daily Multiple] 1 EACH tablet 1 ea PO DAILY RF: 0 ibuprofen 800 MG tablet 800 mg PO TID PRNRF: 0 BRONCHAID 60 mg PO DAILY RF: 0 aspirin 81 mg Tablet,Chewable 81 mg PO DAILY RF: 0 Discharge Instructions Instructions: Opioid Withdrawal (ED) Additional Instructions: Continue all your prescribed medications as directed. You likely have precipitated an opiate withdrawal that will last a few hours. Return if unable to tolerate liquids by mouth. You may use provided Zofran if needed for nausea. Please follow-up with Dr. Meneses in clinic for recheck. Medical Decision Making 63-year-old male who states he has been using illicit narcotics for some time, typically with 40 mg of OxyContin per day. He was recently prescribed Suboxone by his primary care physician, Dr. Meneses, which she was to start this morning after being drug-free. He states he bought illicit narcotic yesterday that he believes is OxyContin but may have been methadone. He is unsure of the dose. After taking this mornings Suboxone he states he developed nausea and abdominal cramps. Patient arrives anxious with a blood pressure 160/73. He is given a small amount of Ativan, antiemetic, fluids and has some mild improvement. I feel he does have precipitated withdrawal that will be short but mildly uncomfortable. Discussed with him that it is not dangerous. He is to adhere to prescribed medicines only. He stable and improved at this time. HPI General Mode of arrival: ambulatory. Date/Time Provider Initiated Documentation: 08/29/19 12:24. Limitations to Documentation: no limitations. Information obtained by: patient. History of Present Illness 63 year old M presents to the emergency department with the chief complaint of Feels like drug withdrawal, described as moderate, Quality is described as constant, and is localized to the abdomen. Patient reports no radiation. Patient started experiencing this hour(s) and it has been constant. No relieving factors improve symptom(s), No exacerbating factors reported . Patient notes loss of appetite and other (Nauseated). Related Data Home Medications Medication Instructions Recorded Confirmed Bronchaid 60 mg PO DAILY 03/29/15 08/25/19 ibuprofen 800 mg PO TID PRN tab-cap 03/29/15 08/29/19 multivitamin [Daily Multiple] 1 ea PO DAILY 03/29/15 08/29/19 elderberry fruit 200 mg capsule 200 mg PO DAILY cap 04/01/19 08/29/19 omega-3 fatty acids 1,000 mg 1,000 mg PO DAILY 04/01/19 08/29/19 capsule aspirin 81 mg PO DAILY 05/14/19 08/29/19 Allergies Allergy/AdvReac Type Severity Reaction Status Date / Time ragweed pollen Allergy Mild Verified 08/29/19 12:30 sulfamethoxazole Allergy Unknown Verified 08/29/19 12:30 [From Bactrim] trimethoprim [From Bactrim] Allergy Unknown Verified 08/29/19 12:30 cephalexin Allergy Skin Rash Verified 08/29/19 12:30 epinephrine [From Tasha-Phrine] Allergy Verified 08/29/19 12:30 almonds Allergy Unknown Uncoded 08/29/19 12:30 General Stated Complaint: DrugWithdr SHIRA: 3 Review of Systems Narrative: No vomiting. No chest pain or difficulty breathing. 6 systems reviewed and otherwise negative [facility] Medical History Alcohol abuse Anemia Arthritis of carpometacarpal (CMC) joint of left thumb (Resolved) Avascular necrosis of bones of both hips Breast pain, left Carpal tunnel syndrome, bilateral Degenerative joint disease of both hips Depressive disorder Deviated septum (Acute) Diverticulitis Encounter for screening colonoscopy (Inactive) Current Visit- YES Factor V Leiden Family history of colon cancer Hemorrhoids Hx of skin cancer, basal cell Hyperlipidemia Impotence Internal hemorrhoids (Resolved) Left foot pain Opioid abuse Rhinitis, allergic Right shoulder pain Sinusitis Sleep apnea uses CPAP Tobacco use quit 2006 Urinary hesitancy (Inactive) Surgical History excision skin lesion History of carpal tunnel release (Resolved) bilateral. History of hip replacement (Resolved) Bilateral/avascular necrosis. History of placement of ear tubes (Acute) History of shoulder surgery (Resolved) left rotator cuff. right foot surgery for congenital defect right toe fusion S/P colonoscopy (Resolved ~2009) 01/20/18 S/P left inguinal hernia repair (Inactive ~08/12/19) Social History Smoking/Tobacco Use Status: Former Tobacco Use Quit Date: 03/04/06 Alcohol Intake: former Drug use: Daily Substance use type: does not use Details: PT reports getting a pill off the street. Pt reports that he is not sure what he took. No reports severe ABD pain. Normal BM this morning. Current gender identity: male Do you feel safe at home: Yes Do you feel safe in your relationship?: Yes Exam Narrative Exam Narrative: GEN: awake, alert, oriented 3. Pleasant, well groomed, interactive. HEAD: Normocephalic, atraumatic ENT: Mucous membranes moist, oropharynx unremarkable, External ear exam unremarkable EYES: PERRL, EOMI NECK: Full ROM, no STACEY, no menigismus CHEST/RESP: Nontender, clear to auscultation bilateral, no wheeze/rhonchi/rales CARDIOVASCULAR: RRR, no murmur, rub laly. 2+ Rad pulse bilateral ABDOMEN: Soft, nontender, no mass. +Bowel sounds EXT: Full ROM, no edema, no rash Neuro: Grossly normal neurologic exam, conversant, interactive. Psych: Speech fluent, thoughts congruent, affect anxious Course Vital Signs Vital signs: Vital Signs Temperature 36.7 C 08/29/19 12:27 Pulse 90 08/29/19 12:27 Blood Pressure 160/73 H 08/29/19 12:27 Pulse Oximetry 100 08/29/19 12:27 Temperature 36.7 C 08/29/19 12:27 Pulse 90 08/29/19 12:27 Blood Pressure 160/73 H 08/29/19 12:27 Pulse Oximetry 100 08/29/19 12:27 Oxygen Delivery Method Room Air 08/29/19 12:27 Oxygen Flow Rate 0 08/29/19 12:27 Pain Level 10 08/29/19 12:27
[2019-08-29 12:50] LABS: Abs Immature Grans 0.01 k/cumm (0.0-0.09); Absolute Basophil Count 0.01 k/cumm (0.0-0.2); Absolute Eosinophil Count 0.23 k/cumm (0.0-0.7); Absolute Lymphocyte Count 1.97 k/cumm (1.2-3.4); Absolute Monocyte Count 0.65 k/cumm (0.11-0.7); Basophils % 0.2; Eosinophils % 3.6; HCT 37.5 % (40.0-50.0); HGB 12.5 g/dL (13.5-17.5); Immature Grans % 0.2 %; Lymphocytes % 30.9; Mean Corp. HGB Concentration 33.3 g/dL (32.0-36.0); Mean Corpuscular Hemoglobin 32.9 pg (27.0-33.0); Mean Corpuscular Volume 98.7 fL (80-95); Mean Platelet Volume 8.7 fL (8.0-11.0); Monocytes % 10.2; Neutrophils % 54.9; Platelet Count 273 x1000/uL (130-400); White Blood Cell Count 6.37 k/cumm (4.4-10.8)
[2019-08-29] MEDS: Normal Saline 1,000 ML 1000 ML IV (12:52)
[2019-08-29] MEDS: Ondansetron 4 MG/2 ML VIAL IVP (12:53)
[2019-08-29] MEDS: LORazepam 2 MG/ML VIAL 0.5 MG IVP ×2 (12:54→13:43)
[2019-08-29 13:01] LABS: ALT 39 U/L (16-63); AST 30 U/L (15-37); Albumin 3.5 g/dL (3.4-5.0); Alkaline Phosphatase 69 U/L (46-116); Anion Gap 8.5 mmol/L (3-11); BUN 20 mg/dL (7-18); Bilirubin, Total 0.4 mg/dL (0.2-1.0); CO2 26.5 mmol/L (21.0-32.0); CREATININE 1.01 mg/dL (0.70-1.30); Calcium 8.8 mg/dL (8.5-10.1); Chloride 103 mmol/L (98-107); Glucose 111 mg/dL (74-106); Potassium 3.5 mmol/L (3.5-5.1); Sodium 138 mmol/L (136-145); Total Protein 6.9 g/dL (6.4-8.2)
[2019-08-29] MEDS: Dicyclomine 20 MG TAB PO (13:43)
[2019-08-29 14:09] LABS: *AMPHETAMINES SCREEN URINE Negative (Negative); *BARBITURATES SCREEN URINE Negative (Negative); *BENZODIAZEPINES SCREEN URINE POSITIVE (Negative); Cannabinoids THC Negative (Negative); Cocaine Screen,Urine Negative (Negative); METHADONE URINE SCREEN POSITIVE (Negative); OPIATES URINE SCREEN Negative (Negative)
[2019-08-29 14:11] LABS: Tricyclic Antidepressants Negative (Negative)
== END 2019-08-29 14:35 | disposition home or self-care (01) ==
PROVIDERS: Emergency Provider Emergency Medicine; PCP Nurse Practitioner Family
DX: F11.23 Opioid dependence with withdrawal (principal); F41.9 Anxiety disorder, unspecified; R03.0 Elevated blood-pressure reading, without diagnosis of hypertension
CPT/HCPCS: 80053; 80307; 96361; 96374; 96375; 96376; 99284; 83735; 85025; J2060; J2405

== ENCOUNTER 2019-08-31 17:53 | Emergency (ER) | payer MEDICAID, SELFPAY ==
[2019-08-31 18:04] VITALS: BP 157/70; PULSE 78; RESP 13; TEMP 36.6; O2SAT 98
[2019-08-31] MEDS: Normal Saline 1,000 ML 1000 ML IV (18:15)
--- NOTE | 2019-08-31 18:40 | W.ED.GENAD ---
Discharge Plan Disposition Patient Disposition: OTHER Discharge Details Chief Complaint: Abd Prob Clinical Impression: Abdominal pain, Polysubstance abuse Primary Care Provider: Hema Godwin ED Provider: Lc Casanova Home Meds and New Rx's Prescriptions: Continued omega-3 fatty acids [Fish Oil Concentrate] 1,000 mg capsule 1,000 mg PO DAILY RF: 0 elderberry fruit 200 mg capsule 200 mg PO DAILY RF: 0 multivitamin [Daily Multiple] 1 EACH tablet 1 ea PO DAILY RF: 0 ibuprofen 800 MG tablet 800 mg PO TID PRNRF: 0 BRONCHAID 60 mg PO DAILY PRNRF: 0 buprenorphine-naloxone [Suboxone] 8-2 mg Film 1 film sublingual DAILY RF: 0 aspirin 81 mg Tablet,Chewable 81 mg PO DAILY RF: 0 Discharge Instructions Additional Instructions: Eloped prior to formal discharge from the ER. Verbally encouraged to return to the ER for new or worsening symptoms. Medical Decision Making 63-year-old gentleman presents to the ER initially for potential respiratory complaints, subsequently denies those and reports abdominal pain. Patient was triaged, IV established, laboratory values were ordered. He decided to elope from room 7 and did not wish to have a full history and physical. Patient was awake, alert, had capacity to make his own decisions. He denied any symptoms to me currently and told me he had no reason to be here. He pulled his own IV out, pushed the button on the door, subsequently eloped from the ER. Medical Records Medical records reviewed: Yes I reviewed the patient's medical records. ECG Data Attestation: I personally reviewed and interpreted this ECG (s) as follows: Interpretation: EKG performed at 1811, reviewed and interpreted with Dr. Reveles. Sinus rhythm, ventricular of 82. Short MA syndrome. No STEMI HPI General Mode of arrival: ambulatory. Date/Time Provider Initiated Documentation: 08/31/19 17:59. Limitations to Documentation: no limitations. Information obtained by: patient. HPI Narrative: This is a 63-year-old gentleman with history of anemia, depression, factor V Leiden deficiency, opiate abuse, currently prescribed Suboxone. He presented to the ER today initially to registration as respiratory complaint, initially made a PUI. Staff took the proper precautions and brought him into room 7. Upon further triage it appears as though the chief complaint was different than what was described in registration. Patient is a Suboxone client, he took 2 tablets of 10 mg p.o. methadone today that he got on the street, and he drinks some wine. He was complaining of some abdominal pain. Nursing staff established IV and I placed initial orders. As I was going into room 7 he was attempting to elope. He tells me he does not need to be here in the ER, does not want to wait any longer, and does not have any pain. Patient is not willing to fully answer my questions. He does not wish to have a full history and physical performed. The majority of my discussion with the patient was in the hallway, he proceeded to walk out to registration and hit the button on the door and then eloped from the ER. I did attempt to contact his Renée at the phone #[phone], went straight to [employer] and I did leave a message to have her call me. Related Data Home Medications Medication Instructions Recorded Confirmed Bronchaid 60 mg PO DAILY PRN 03/29/15 08/31/19 ibuprofen 800 mg PO TID PRN tab-cap 03/29/15 08/31/19 multivitamin [Daily Multiple] 1 ea PO DAILY 03/29/15 08/31/19 elderberry fruit 200 mg capsule 200 mg PO DAILY cap 04/01/19 08/31/19 omega-3 fatty acids 1,000 mg 1,000 mg PO DAILY 04/01/19 08/31/19 capsule aspirin 81 mg PO DAILY 05/14/19 08/31/19 buprenorphine-naloxone [Suboxone] 1 film SUBLINGUAL DAILY 08/29/19 08/31/19 Allergies Allergy/AdvReac Type Severity Reaction Status Date / Time ragweed pollen Allergy Mild Verified 08/29/19 12:30 sulfamethoxazole Allergy Unknown Verified 08/29/19 12:30 [From Bactrim] trimethoprim [From Bactrim] Allergy Unknown Verified 08/29/19 12:30 cephalexin Allergy Skin Rash Verified 08/29/19 12:30 epinephrine [From Tasha-Phrine] Allergy Verified 08/29/19 12:30 almonds Allergy Unknown Uncoded 08/29/19 12:30 General Stated Complaint: RespSymp SHIRA: 2 Review of Systems Constitutional Constitutional: Denies fever(s) and Denies headache(s) ENT Ears, Nose, Mouth, and Throat: Denies headache(s) Cardiovascular Cardiovascular: Denies chest pain Gastrointestinal Gastrointestinal: Reports abdominal pain (I had abdominal pain, not now) Neurologic Neurologic: Denies headache(s) [facility] Medical History Alcohol abuse Anemia Arthritis of carpometacarpal (CMC) joint of left thumb (Resolved) Avascular necrosis of bones of both hips Breast pain, left Carpal tunnel syndrome, bilateral Degenerative joint disease of both hips Depressive disorder Deviated septum (Acute) Diverticulitis Encounter for screening colonoscopy (Inactive) Current Visit- YES Factor V Leiden Family history of colon cancer Hemorrhoids Hx of skin cancer, basal cell Hyperlipidemia Impotence Internal hemorrhoids (Resolved) Left foot pain Opioid abuse Rhinitis, allergic Right shoulder pain Sinusitis Sleep apnea uses CPAP Tobacco use quit 2006 Urinary hesitancy (Inactive) Surgical History excision skin lesion History of carpal tunnel release (Resolved) bilateral. History of hip replacement (Resolved) Bilateral/avascular necrosis. History of placement of ear tubes (Acute) History of shoulder surgery (Resolved) left rotator cuff. right foot surgery for congenital defect right toe fusion S/P colonoscopy (Resolved ~2009) 01/20/18 S/P left inguinal hernia repair (Inactive ~08/12/19) Family History Other Alcohol abuse Colon cancer Pancreatitis Social History Smoking/Tobacco Use Status: Former Tobacco Use Quit Date: 03/04/06 Alcohol Intake: former Drug use: Daily Substance use type: does not use Details: PT reports getting a pill off the street. Pt reports that he is not sure what he took. No reports severe ABD pain. Normal BM this morning. Current gender identity: male Do you feel safe at home: Yes Do you feel safe in your relationship?: Yes Exam Const General: healthy appearing, comfortable and no acute distress Orientation: alert, awake and oriented x3 HENMT Head: normal to inspection, normocephalic and atraumatic Face and sinus: normal facial exam Mouth: moist mucous membranes Eyes Conjunctivae: conjunctivae normal Sclera: sclerae normal Neck Neck: normal visual inspection, trachea midline and supple Resp Effort & Inspection: normal respiratory effort and able to speak in complete sentences Skin General skin exam: no rashes or lesions noted Neuro General: patient alert, patient awake, patient oriented x3, moves all extremities and no focal motor deficits Speech: speech normal Gait: normal gait Sensory Exam: no sensory deficits noted Extrem General: normal to inspection, full ROM, capillary refill normal, no pedal edema, no calf tenderness and other (Patient had already removed his IV) Psych Appearance: grossly normal Mental Status: mental status grossly normal Course Vital Signs Vital signs: Vital Signs Temperature 36.6 C 08/31/19 18:04 Pulse 78 08/31/19 18:04 Respiratory Rate 13 08/31/19 18:04 Blood Pressure 157/70 H 08/31/19 18:04 Pulse Oximetry 98 08/31/19 18:04 Temperature 36.6 C 08/31/19 18:04 Temperature Source Skin 08/31/19 18:04 Pulse 78 08/31/19 18:04 Respiratory Rate 13 08/31/19 18:04 Blood Pressure 157/70 H 08/31/19 18:04 Blood Pressure Position Supine 08/31/19 18:04 Pulse Oximetry 98 08/31/19 18:04 Oxygen Delivery Method Room Air 08/31/19 18:04 Oxygen Flow Rate 0 08/31/19 18:04 Pain Level 10 08/31/19 18:04
== END 2019-08-31 18:35 | disposition other institution (70) ==
PROVIDERS: Emergency Provider Physician Assistant; PCP Nurse Practitioner Family
DX: F19.10 Other psychoactive substance abuse, uncomplicated (principal); Z53.29 Procedure and treatment not carried out because of patient's decision for other reasons
CPT/HCPCS: 80053; 83690; 93005; 96360; 99284; 80320; 85025; 93010; 99283

== ENCOUNTER 2019-09-01 12:26 | Emergency (ER) | payer MEDICAID, SELFPAY ==
[2019-09-01 12:30] VITALS: BP 175/78; PULSE 82; RESP 20; TEMP 36.6; O2SAT 97
--- NOTE | 2019-09-01 13:06 | ED.GENADUL_ITS ---
Discharge Plan Disposition Patient Disposition: HOME Condition: Stable Discharge Details Chief Complaint: Abd Prob Clinical Impression: Opioid use disorder, Heroin abuse, Withdrawal symptoms, drug or narcotic Primary Care Provider: Hema Godwin ED Provider: Tera Nina Home Meds and New Rx's Prescriptions: Continued omega-3 fatty acids [Fish Oil Concentrate] 1,000 mg capsule 1,000 mg PO DAILY RF: 0 elderberry fruit 200 mg capsule 200 mg PO DAILY RF: 0 multivitamin [Daily Multiple] 1 EACH tablet 1 ea PO DAILY RF: 0 ibuprofen 800 MG tablet 800 mg PO TID PRNRF: 0 BRONCHAID 60 mg PO DAILY PRNRF: 0 buprenorphine-naloxone [Suboxone] 8-2 mg Film 1 film sublingual DAILY RF: 0 aspirin 81 mg Tablet,Chewable 81 mg PO DAILY RF: 0 Discharge Instructions Instructions: Opioid Withdrawal (ED), Opioid Use Disorder (ED) Additional Instructions: Please follow-up with defensive line coach. Please call your primary care physician to arrange timely outpatient follow-up. Take your medication as prescribed. Return to the ER for any worsening or new concerning symptoms. Referrals: [facility] [Outside] Damien Meneses [ [facility] STAFF PHYSICIAN] - Discharge Data Discharge Date/Time-TO BE ENTERED AT DEPARTURE: 09/01/19 13:42 Medical Decision Making 1311??63-year-old male who suffers from opioid use disorder and abuses heroin, here in mild to moderate withdrawal. A medical screening exam was performed. Care management to assist in arranging placement at rehab facility. I called and spoke with the patient's primary care physician and confirmed that he had recently been prescribed buprenorphine. He agrees with providing a dose ibuprofen here as treatment. --I offered the patient a dose of Suboxone and patient declined noting concerned that it may make him nauseous again. I confirmed that his last methadone dose was Saturday or Saturday. I suggested that if he did not want to take a dose of Suboxone here now, that he should refrain from using any alcohol or methadone or any other opioids today and then take a dose of the Suboxone this evening. Care management with the patient and I spoke with [facility]. Unfortunately [facility] does not have bed availability currently. cheerleading coach is meeting with the patient. Plan will be for outpatient follow- up. HPI General Mode of arrival: ambulatory . Date/Time Provider Initiated Documentation: 09/01/19 12:27 . Limitations to Documentation: no limitations . Information obtained by: patient . HPI Narrative: 63-year-old male presents with chief complaint of nausea. Patient notes he is currently in opioid withdrawal. Patient has been abusing heroin. He has been seen by his primary care physician and was prescribed Suboxone. He took a single dose Saturday and noted he felt nauseous. He is here seeking further treatment for withdrawal and assistance with outpatient rehab placement. Related Data Home Medications Medication Instructions Recorded Confirmed Bronchaid 60 mg PO DAILY PRN 03/29/15 09/01/19 ibuprofen 800 mg PO TID PRN tab-cap 03/29/15 09/01/19 multivitamin [Daily Multiple] 1 ea PO DAILY 03/29/15 09/01/19 elderberry fruit 200 mg capsule 200 mg PO DAILY cap 04/01/19 09/01/19 omega-3 fatty acids 1,000 mg 1,000 mg PO DAILY 04/01/19 09/01/19 capsule aspirin 81 mg PO DAILY 05/14/19 09/01/19 buprenorphine-naloxone [Suboxone] 1 film SUBLINGUAL DAILY 08/29/19 08/31/19 Allergies Allergy/AdvReac Type Severity Reaction Status Date / Time ragweed pollen Allergy Mild Verified 09/01/19 12:36 sulfamethoxazole Allergy Unknown Verified 09/01/19 12:36 [From Bactrim] trimethoprim [From Bactrim] Allergy Unknown Verified 09/01/19 12:36 cephalexin Allergy Skin Rash Verified 09/01/19 12:36 epinephrine [From Tasha-Phrine] Allergy Verified 09/01/19 12:36 almonds Allergy Unknown Uncoded 09/01/19 12:36 General Stated Complaint: Abd Prob SHIRA: 3 Review of Systems All systems reviewed & are unremarkable except as noted in HPI and below Constitutional Constitutional: Denies fever(s) Gastrointestinal Comments: Diffuse crampy abdominal pain PFSH Medical History Alcohol abuse Anemia Arthritis of carpometacarpal (CMC) joint of left thumb (Resolved) Avascular necrosis of bones of both hips Breast pain, left Carpal tunnel syndrome, bilateral Degenerative joint disease of both hips Depressive disorder Deviated septum (Acute) Diverticulitis Encounter for screening colonoscopy (Inactive) Current Visit- YES Factor V Leiden Family history of colon cancer Hemorrhoids Hx of skin cancer, basal cell Hyperlipidemia Impotence Internal hemorrhoids (Resolved) Left foot pain Opioid abuse Rhinitis, allergic Right shoulder pain Sinusitis Sleep apnea uses CPAP Tobacco use quit 2006 Urinary hesitancy (Inactive) Surgical History excision skin lesion History of carpal tunnel release (Resolved) bilateral. History of hip replacement (Resolved) Bilateral/avascular necrosis. History of placement of ear tubes (Acute) History of shoulder surgery (Resolved) left rotator cuff. right foot surgery for congenital defect right toe fusion S/P colonoscopy (Resolved ~2009) 01/20/18 S/P left inguinal hernia repair (Inactive ~08/12/19) Family History Other Alcohol abuse Colon cancer Pancreatitis Social History Smoking/Tobacco Use Status: Former Tobacco Use Quit Date: 03/04/06 Alcohol Intake: current Alcohol Intake frequency: a few times a week Drug use: Daily Substance use type: heroin Details: Pt states hes been doing 1 bundle of heroin daily for 1 month, last use was saturday- feeling withdrawal symptoms and [facility] Current gender identity: male Do you feel safe at home: Yes Do you feel safe in your relationship?: Yes Exam Const General: cooperative and no acute distress HENMT Mouth: moist mucous membranes Eyes Conjunctivae: normal conjunctivae Sclera: normal sclerae Neck Neck: trachea midline and supple Resp Auscultation: clear to auscultation bilaterally, no rales, no rhonchi and no wheezes Cardio Jugular venous pressure: no JVD Rate: regular rate and not tachycardic Rhythm: regular rhythm GI Palpation: soft, not firm, no guarding, no masses, not rigid and nontender Skin General skin exam: no rashes or lesions noted Neuro General: patient alert, patient awake, patient oriented x3 and tone normal Extrem General: no edema Psych Appearance: grossly normal Mental Status: mental status grossly normal Speech and Movement: speech and movement normal Course Vital Signs Vital signs: Vital Signs Temperature 36.6 C 09/01/19 12:30 Pulse 82 09/01/19 12:30 Respiratory Rate 20 09/01/19 12:30 Blood Pressure 175/78 H 09/01/19 12:30 Pulse Oximetry 97 09/01/19 12:30 Temperature 36.6 C 09/01/19 12:30 Temperature Source Skin 09/01/19 12:30 Pulse 82 09/01/19 12:30 Respiratory Rate 20 09/01/19 12:30 Respiratory Effort Non-Labored 09/01/19 12:38 Blood Pressure 175/78 H 09/01/19 12:30 Blood Pressure Position Sitting 09/01/19 12:30 Pulse Oximetry 97 09/01/19 12:30 Oxygen Delivery Method Room Air 09/01/19 12:30 Oxygen Flow Rate 0 09/01/19 12:30 Pain Level 10 09/01/19 12:30
--- NOTE | 2019-09-01 13:22 | PDOC.ERCMPRO ---
- If Service Date Differs Date of service: 09/01/19 Time of Service: 13:22 Care Management Progress Note S/O: CM meets with Italo at the request of ED provider. Italo reports he is seeking an inpatient detox program. He has already been in touch with [facility] and has completed the intake process. Unfortunately, [facility] not currently have any available beds. DAREK has paged the oil recovery unit operator and will facilitate a telephone conversation between Italo and the oil recovery unit operator. A: Italo is a 63 year old male who presents to the ED today for withdrawal symptoms. P: Italo leaves the emergency department before he is able to speak with the oil recovery unit operator. He will follow-up with [facility] and with his PCP, Dr. Meneses, as directed. The oil recovery unit operator is provided contact information for Italo and they will outreach to him directly to offer support. DAREK will continue to follow.
--- NOTE | 2019-09-01 13:45 | NUR.NOTE ---
Nursing Note: Pt refused vitals prior to DC.
--- NOTE | 2019-09-02 11:08 | CMPROGNOTE_ITS ---
- If Service Date Differs Date of service: 09/02/19 Time of Service: 11:08 Care Management Progress Note DAREK receives a telephone call from Italo's , Renée, requesting a referral be sent to [facility]. DAREK calls [facility] ([phone]) to inquire as to the referral process and is advised that they do not require referrals. They do, however, request a copy of the doctor's note, as Italo was seen in the ED yesterday. DAREK faxes the note to [facility] and calls Italo to advise him appr opriate documents have been sent. Italo will follow-up directly with [facility].
== END 2019-09-01 13:42 | disposition home or self-care (01) ==
PROVIDERS: Emergency Provider Student in an Organized Health Care Education/Training Program; PCP Nurse Practitioner Family
DX: F11.23 Opioid dependence with withdrawal (principal); R11.0 Nausea
CPT/HCPCS: 99283

== ENCOUNTER 2020-06-28 02:06 | Outpatient (CLI) | payer MEDICAID, SELFPAY ==
--- NOTE | 2020-06-28 08:45 | DI.RAD_ITS ---
EXAM: XR SHOULDER RT COMPLETE 2+V CLINICAL HISTORY: RT SHOULDER PAIN, M25.511 INDOLENT PAIN WITH IMPINGEMENT. TECHNIQUE: 2D digital imaging was performed. COMPARISON: No exams were available for comparison FINDINGS: Mild degenerative changes are seen at the acromioclavicular joint and the glenohumeral joint. The georges ramya are intact and normally mineralized. The soft tissues are unremarkable. IMPRESSION: Mild degenerative changes of the right shoulder as described. DATA REPOSITORY: RADIATION DOSE DELIVERED:
== END 2020-06-28 02:26 ==
PROVIDERS: PCP Nurse Practitioner Family; Visit Provider Physician Assistant
DX: M25.511 Pain in right shoulder (principal); M19.011 Primary osteoarthritis, right shoulder
CPT/HCPCS: 73030

== ENCOUNTER 2020-12-14 21:29 | Outpatient (REF) | payer MEDICAID, SELFPAY ==
[2020-12-14 21:18] LABS: Abs Immature Grans 0.01 10^3/uL (0.0-0.06); Absolute Basophil Count 0.04 10^3/uL (0.0-0.2); Absolute Eosinophil Count 0.22 10^3/uL (0.0-0.7); Absolute Lymphocyte Count 2.45 10^3/uL (1.2-3.4); Absolute Monocyte Count 0.82 10^3/uL (0.1-0.8); Absolute Neutrophil Count 2.49 10^3/uL (1.2-6.7); Basophils % 0.7; Eosinophils % 3.6; HCT 39.1 % (40.0-50.0); HGB 13.1 g/dL (13.5-17.5); Immature Grans % 0.2; Lymphocytes % 40.6; MCH 33.8 pg (27.0-33.0); MCHC 33.5 % (32.0-36.0); MCV 100.8 fL (80-95); MPV 9.6 fL (8.0-11.0); Monocytes % 13.6; Neutrophils % 41.3; Nucleated RBC 0 %; Platelet Count 269 10^3/uL (130-400); RBC 3.88 10^6/uL (4.36-5.78); RDW 12.3 % (11.8-14.1); RDW-SD 46.3 fL; WBC 6.03 10^3/uL (4.4-10.8)
[2020-12-14 21:40] LABS: ALT 33 U/L (16-63); AST 21 U/L (15-37); Alkaline Phosphatase 65 U/L (46-116); Anion Gap 9.9 mmol/L (3-11); BUN 9 mg/dL (7-18); Bilirubin, Total 0.5 mg/dL (0.2-1.0); CO2 25.1 mmol/L (21.0-32.0); CREATININE 0.8 mg/dL (0.70-1.30); Calcium 9.1 mg/dL (8.5-10.1); Calculated LDL 145 mg/dL (<100); Chloride 102 mmol/L (98-107); Cholesterol 240 mg/dL (<200); Glucose 99 mg/dL (74-106); HDL Cholesterol 87 mg/dL (40-60); Potassium 4.3 mmol/L (3.5-5.1); Sodium 137 mmol/L (136-145); Total Protein 7.2 g/dL (6.4-8.2); Triglyceride 41 mg/dL (<150)
[2020-12-16 10:24] LABS: Hepatitis B Surface Ag Negative (Negative)
[2020-12-16 10:45] LABS: HIV-1/2 Ag & Ab Screen Negative (Negative)
[2020-12-16 11:15] LABS: Hepatitis C Ab w Rflx HCV PCR Negative (Negative)
== END 2020-12-14 21:30 | disposition home or self-care (01) ==
LOC: NCHCN 21:29
PROVIDERS: PCP Nurse Practitioner Family; Visit Provider Family Medicine
DX: D53.9 Nutritional anemia, unspecified (principal); F10.20 Alcohol dependence, uncomplicated; Z00.00 Encounter for general adult medical examination without abnormal findings
CPT/HCPCS: 80053; 80061; 86803; 87340; 87389; 85025

== ENCOUNTER 2021-01-12 01:17 | Outpatient (CLI) | payer MEDICAID, SELFPAY ==
--- NOTE | 2021-01-12 14:56 | DI.US_ITS ---
APPROVED REPORT EXAM: Comprehensive 2D, Doppler, and color-flow Echocardiogram Patient Location: Out-Patient Library Paraprofessional: Saira Trinidad RDCS (AE) Indications: Abnormal EKG, HTN,Alcohol and Opioid use, Abnormal EKG Other Information Study Quality: Adequate Conclusion Normal left ventricular wall thickness and chamber size. Estimated ejection fraction is 60%. Wall m otion is normal Normal right ventricular size and systolic function Both atria are normal in size There is no structural or hemodynamically significant valvular disease Normal estimated right ventricular systolic pressure, 25 mmHg Wall motion Left Ventricle The left ventricle is normal size. The left ventricular systolic function is normal. The left ventric ular ejection fraction is within the normal range. There is normal left ventricular wall thickness. T here is normal LV segmental wall motion. There is no ventricular septal defect visualized. LVEF is 60 %. Right Ventricle The right ventricle is normal size. The right ventricular systolic function is normal. The RVSP is 25 .3mmHg. Atria The left atrium size is normal. The right atrium size is normal. The interatrial septum is intact wit h no evidence for an atrial septal defect. Aortic Valve The aortic valve is normal in structure. Aortic valve is trileaflet. There is no aortic valvular sten osis. Trace aortic regurgitation. Mitral Valve The mitral valve is normal in structure. No evidence of mitral valve stenosis. Trace mitral regurgita tion. Tricuspid Valve The tricuspid valve is normal in structure. There is no tricuspid valve stenosis. Trace tricuspid reg urgitation. Pulmonic Valve The pulmonary valve is normal in structure. There is no pulmonic valvular stenosis. Trace pulmonic re gurgitation. Great Vessels The aortic root is normal in size. The ascending aorta is normal in size. Aortic arch is normal in ca liber. IVC is normal in size and collapses >50% with inspiration. Pericardium There is no pericardial effusion. 2D Dimensions IVSD d PLAX 0.91 cm M: 0.6-1.2 LV Vol A2C d MOD 81.7 mL LVPW d PLAX 0.92 cm M: 0.6 - 1.2 LV Vol A4C d MOD 100.3 mL LVID d PLAX 4.88 cm M: 4.2 - 5.8 LA vol/ BSA A2C s A-L 26.2 mL/m2 LVDs 3.35 cm M: 2.5 - 4.0 LA vol/ BSA A4C s A-L 27.8 mL/m2 Ao Root d 2.61 cm M: 3.1 - 3.7 LA Vol/ BSA Biplane s A-L 28.6 mL/m2 RA Area A4C 12.88 cm2 LA Area A4C s MOD 17.84 cm2 RA Vol/ BSA A4C s A-L 16.5 mL/m2 LA Area A2C s MOD 16.32 cm2 Ao Asc Diam d 3.38 cm M: 2.6 - 3.4 LV EF A4C MOD 57.5 % LV EF Teichholz 58.1 % LV EF A2C MOD 58.8 % LVEF (Baig's) 58.60 % M: 52 - 72 LV EF Biplane MOD 58.6 % LV Volume 73.19 mL M: 62 - 150 SV 55.19 mL LV Volume Index 40.66 mL/m2 M: 34 - 74 SV Index 30.58 mL/m2 LV Vol Biplane MOD 94.2 mL FS 30.65 % M-Mode TAPSE 2.17 cm (M/F) >1.7 LV Diastology MV E' medial 0.073 (>0.07 m/s) E/A Ratio 0.7 LV E/e MED 8.40 (<14) MV E Vmax 0.62 (0.4-1.3 m/s) MV E' lateral 0.082 (>0.1 m/s) MV A Vmax 0.85 (0.4-1.3 m/s) LV E/e LAT 7.55 (<14) MV E/A Ratio 0.72 MV E/E' medial 8.44 MV E/E' lateral 7.56 Aortic Valve LVOT Area 3.27 cm2 AoV Area Vmax 2.46 cm2 LVOT Vmax 1.19 m/s AoV Area/ BSA (Vmax) 1.36 cm2/m2 LVOT Mean Darrel. 0.79 m/s CYNTHIA Mean Darrel. 2.22 cm2 LVOT Peak Grad 5.6 mmHg CYNTHIA Mean Darrel. Index 1.23 cm2/m2 LVOT Mean Grad 2.9 mmHg LVOT VTI 0.218 m LVOT Diam s 2.00 cm AoV Vmax 1.58 m/s Velocity Ratio 0.75 AoV Mean Darrel. 1.17 m/s AoV Peak Grad 10.0 mmHg LVOT SV 71.19 mL AoV Mean Grad 5.9 mmHg AoV VTI 0.263 m AoV Area VTI 2.71 cm2 AoV Area/ BSA (VTI) 1.50 cm/m2 Mitral Valve MV DT 282 (160-240 msec) MV PHT 82 msec MV Area PHT 2.69 cm2 MV VTI 0.257 m MV Area VTI 2.76 (4.0-6.0 cm2) Pulmonary Valve PV Vmax 1.12 (0.5-1.5 m/s) RVOT Peak Gr. 3.00 mmHg PV Peak Grad 5.0 mmHg RVOT Mean Gr. 1.55 mmHg PV Mean Grad 2.9 mmHg RVOT VTI 0.154 m PV VTI 0.188 m RVOT Vmax 0.87 m/s Tricuspid Valve TR Peak Grad 22.3 mmHg TR Vmax 2.36 m/s RA Pressure 3.00 mmHg RVSP (TR) 25.3 mmHg
== END 2021-01-12 01:37 ==
PROVIDERS: PCP Nurse Practitioner Family; Visit Provider Family Medicine
DX: R94.31 Abnormal electrocardiogram [ECG] [EKG] (principal); I10 Essential (primary) hypertension; F11.10 Opioid abuse, uncomplicated; F10.10 Alcohol abuse, uncomplicated
CPT/HCPCS: 93306

== ENCOUNTER 2021-04-28 17:29 | Emergency (ER) | payer MEDICAID, SELFPAY ==
[2021-04-28 17:54] VITALS: BP 133/74; PULSE 72; RESP 12; TEMP 36.6; O2SAT 98
[2021-04-28 18:03] VITALS: RESP 12
[2021-04-28 18:18] LABS: ALT 37 U/L (16-63); AST 20 U/L (15-37); Albumin 3.8 g/dL (3.4-5.0); Alkaline Phosphatase 59 U/L (46-116); Anion Gap 7.7 mmol/L (3-11); BUN 12 mg/dL (7-18); Bilirubin, Total 0.8 mg/dL (0.2-1.0); CO2 27.3 mmol/L (21.0-32.0); CREATININE 0.8 mg/dL (0.70-1.30); Calcium 8.8 mg/dL (8.5-10.1); Chloride 102 mmol/L (98-107); Glucose 91 mg/dL (74-106); Potassium 3.9 mmol/L (3.5-5.1); Sodium 137 mmol/L (136-145); Total Protein 7.2 g/dL (6.4-8.2)
--- NOTE | 2021-04-28 18:25 | ED.GENADUL_ITS ---
Discharge Plan Disposition Patient Disposition: HOME Condition: Stable Discharge Details Clinical Impression: COVID-19 Primary Care Provider: Damien Meneses ED Provider: Jeramie Galeano Home Meds and New Rx's Prescriptions: Continued omega-3 fatty acids [Fish Oil Concentrate] 1,000 mg capsule 1,000 mg PO DAILY 0RF elderberry fruit 200 mg capsule 200 mg PO DAILY 0RF multivitamin [Daily Multiple] 1 EACH tablet 1 ea PO DAILY 0RF ibuprofen 800 MG tablet 800 mg PO TID PRN0RF BRONCHAID 60 mg PO DAILY PRN0RF aspirin 81 mg Tablet,Chewable 81 mg PO DAILY 0RF Discharge Instructions Instructions: COVID-19 (Coronavirus Disease 2019) (ED) Additional Instructions: Please continue to monitor your symptoms and if you have significant worsening of her symptoms, shortness of breath, or difficulty breathing feel free to return the emergency department for reevaluation elation. Otherwise follow-up with your primary care provider as needed for reassessment. Referrals: Damien Meneses [Primary Care Provider] - (As needed for reassessment) Discharge Data Discharge Date/Time-TO BE ENTERED AT DEPARTURE: 04/28/21 19:15 Medical Decision Making Patient sent by Dr. Chavez for need of CMP before starting Paxlovid . Patient just tested positive for COVID-19 yesterday and primary care provider is requesting antiviral therapy. Given abundant supply I feel this is reasonable and primary care provider did speak with pharmacist who confirmed availability. Physical exam is unremarkable for any emergent findings consistent with COVID-19 and patient symptoms are consistent with viral illness. CMP was ordered and reviewed and shows unremarkable findings with no need of dose adjustment. Spoke with pharmacist who is able to obtain medication for patient and patient was discharged in stable condition with clear understanding of return and follow-up precautions. HPI General Mode of arrival: ambulatory . Date/Time Provider Initiated Documentation: 04/28/21 17:30 . Limitations to Documentation: no limitations . Information obtained by: patient . History of Present Illness 65 year old M presents to the emergency department with the chief complaint of Covid positive- URI symptoms, with intensity rated at 3. Quality is described as other (bodyaches, RODRIGUEZ,sore throat), Patient reports no radiation. Patient started experiencing this day(s) (1) and it has been constant. improves with No relieving factors improve symptom(s), No exacerbating factors reported . Patient did receive the following treatments prior to arrival, none Related Data Home Medications Medication Instructions Recorded Confirmed Bronchaid 60 mg PO DAILY PRN 03/29/15 04/28/21 ibuprofen 800 mg tablet 800 mg PO TID PRN tab-cap 03/29/15 04/28/21 multivitamin (Daily Multiple) 1 ea PO DAILY 03/29/15 04/28/21 elderberry fruit 200 mg capsule 200 mg PO DAILY cap 04/01/19 04/28/21 omega-3 fatty acids 1,000 mg 1,000 mg PO DAILY 04/01/19 04/28/21 capsule (Fish Oil Concentrate) aspirin 81 mg chewable tablet 81 mg PO DAILY 05/14/19 04/28/21 Allergies Allergy/AdvReac Type Severity Reaction Status Date / Time ragweed pollen Allergy Mild Verified 04/28/21 18:27 sulfamethoxazole Allergy Unknown Verified 04/28/21 18:27 [From Bactrim] trimethoprim [From Bactrim] Allergy Unknown Verified 04/28/21 18:27 cephalexin Allergy Skin Rash Verified 04/28/21 18:27 epinephrine [From Tasha-Phrine] Allergy Verified 04/28/21 18:27 almonds Allergy Unknown Uncoded 04/28/21 18:27 General Stated Complaint: GenMedical SHIRA: 4 Review of Systems Constitutional Constitutional: Reports body ache(s), Reports chills, Reports fever(s), Reports headache(s) and Reports malaise ENT Ears, Nose, Mouth, and Throat: Reports as per HPI, Denies ear discharge, Denies otalgia, Reports headache(s), Reports nasal congestion, Denies neck pain, Reports sore throat and Denies throat swelling Cardiovascular Cardiovascular: Denies chest pain and Denies dyspnea Respiratory Respiratory: Denies cough and Denies dyspnea Musculoskeletal Musculoskeletal: Denies joint swelling and Denies neck pain Integumentary/Breasts Skin/Breast: Denies rash Neurologic Neurologic: Reports headache(s) Allergic/Immunologic Allergic/Immunologic: Denies throat swelling PFSH All Active Problems COVID-19 (Acute) Medical History Alcohol abuse Anemia Arthritis of carpometacarpal (CMC) joint of left thumb Avascular necrosis of bones of both hips Breast pain, left Carpal tunnel syndrome, bilateral Degenerative joint disease of both hips Depressive disorder Deviated septum Diverticulitis Encounter for screening colonoscopy Current Visit- YES Factor V Leiden Family history of colon cancer Hemorrhoids Hx of skin cancer, basal cell Hyperlipidemia Impotence Internal hemorrhoids Left foot pain Opioid abuse Rhinitis, allergic Right shoulder pain Sinusitis Sleep apnea uses CPAP Tobacco use quit 2006 Urinary hesitancy Surgical History excision skin lesion History of carpal tunnel release bilateral. History of hip replacement Bilateral/avascular necrosis. History of placement of ear tubes History of shoulder surgery left rotator cuff. right foot surgery for congenital defect right toe fusion S/P colonoscopy (~2009) 01/20/18 S/P left inguinal hernia repair (~08/12/19) Family History Other Alcohol abuse Colon cancer Pancreatitis Social History Smoking/Tobacco Use Status: Former Tobacco Use Quit Date: 03/04/06 Smoking risk assessment performed?: Yes Alcohol Intake: former Drug use: Daily Substance use type: heroin Details: Pt states hes been doing 1 bundle of heroin daily for 1 month, last use was saturday- feeling withdrawal symptoms and wants to go to [facility] Current gender identity: male Do you feel safe at home: Yes Do you feel safe in your relationship?: Yes Exam Const General: cooperative, comfortable and no acute distress Orientation: alert and awake [facility] Head: normal to inspection, normocephalic and atraumatic Ears: hearing grossly normal bilaterally and TM's normal bilaterally General nose exam: external nose normal Face and sinus: no erythema Mouth: oral mucosae normal, no muffled voice and no trismus Throat: posterior oropharynx normal Neck Neck: normal visual inspection, full ROM, no meningeal signs, trachea midline and supple Resp Effort & Inspection: normal respiratory effort and able to speak in complete sentences Auscultation: clear to auscultation bilaterally Cardio Rate: regular rate Rhythm: regular rhythm Heart Sounds: normal S1 and S2 Skin General skin exam: no rashes or lesions noted Neuro General: patient alert, patient awake, patient oriented x3, gait normal and moves all extremities Cognition: normal cognition Speech: speech normal Course Vital Signs Vital signs: Vital Signs Temperature 36.6 C 04/28/21 17:54 Pulse 72 04/28/21 17:54 Respiratory Rate 12 04/28/21 17:54 Blood Pressure 133/74 04/28/21 17:54 Pulse Oximetry 98 04/28/21 17:54 Temperature 36.6 C 04/28/21 17:54 Temperature Source Temporal Artery Scan 04/28/21 17:54 Pulse 72 04/28/21 17:54 Respiratory Rate 12 04/28/21 18:03 Respiratory Effort Non-Labored 04/28/21 18:03 Respiratory Depth Normal 04/28/21 18:03 Respiratory Pattern Normal 04/28/21 18:03 Blood Pressure 133/74 04/28/21 17:54 Blood Pressure Position Sitting 04/28/21 17:54 Pulse Oximetry 98 04/28/21 17:54 Oxygen Delivery Method Room Air 04/28/21 17:54 Oxygen Flow Rate 0 04/28/21 17:54 Lab/Test Results Lab/Test Results: Laboratory Tests Range/Units 04/28/21 17:52 Sodium (136-145) mmol/L 137 Potassium (3.5-5.1) mmol/L 3.9 Chloride (98-107) mmol/L 102 Carbon Dioxide (21.0-32.0) mmol/L 27.3 Anion Gap (3-11) mmol/L 7.7 BUN (7-18) mg/dL 12 Creatinine (0.70-1.30) mg/dL 0.8 Estimated GFR/1.73 m2 (mL/min/1.73m2) >= 60.00 Glucose (74-106) mg/dL 91 Calcium (8.5-10.1) mg/dL 8.8 Total Bilirubin (0.2-1.0) mg/dL 0.8 AST (15-37) U/L 20 ALT (16-63) U/L 37 Alkaline Phosphatase (46-116) U/L 59 Total Protein (6.4-8.2) g/dL 7.2 Albumin (3.4-5.0) g/dL 3.8
--- NOTE | 2021-04-28 18:25 | NUR.NOTE ---
I have reviewed and agree with Allyson Hill's assessments.
== END 2021-04-28 19:15 | disposition home or self-care (01) ==
PROVIDERS: Emergency Provider Nurse Practitioner Family; PCP Family Medicine
DX: U07.1 COVID-19 (principal)
CPT/HCPCS: 80053; 99283

== ENCOUNTER 2021-09-26 20:53 | Outpatient (REF) | payer MEDICAID, SELFPAY ==
[2021-09-26 22:16] LABS: HGB 11.9 g/dL (13.5-17.5); MCH 32.6 pg (27.0-33.0); MCV 96 fL (80-95); MPV 9.7 fL (8.0-11.0); Platelet Count 163 10^3/uL (130-400); RBC 3.65 10^6/uL (4.36-5.78); RDW-SD 42.5 fL
[2021-09-26 22:52] LABS: ALT 61 U/L (16-63); AST 34 U/L (15-37); Albumin 3.6 g/dL (3.4-5.0); Alkaline Phosphatase 72 U/L (46-116); Anion Gap 7.8 mmol/L (3-11); BUN 13 mg/dL (7-18); Bilirubin, Total 0.6 mg/dL (0.2-1.0); CO2 27.2 mmol/L (21.0-32.0); CREATININE 0.9 mg/dL (0.70-1.30); Calcium 8.4 mg/dL (8.5-10.1); Chloride 103 mmol/L (98-107); Glucose 96 mg/dL (74-106); NT-proBNP 145 pg/mL (<300); Potassium 4.1 mmol/L (3.5-5.1); Sodium 138 mmol/L (136-145); Total Protein 6.6 g/dL (6.4-8.2)
[2021-09-26 23:11] LABS: Calculated LDL 75 mg/dL (<100); Cholesterol 146 mg/dL (<200); HDL Cholesterol 65 mg/dL (40-60); Triglyceride 30 mg/dL (<150)
== END 2021-09-26 20:54 | disposition home or self-care (01) ==
LOC: NCHCN 20:53
PROVIDERS: PCP Family Medicine; Visit Provider Family Medicine
DX: Z00.00 Encounter for general adult medical examination without abnormal findings (principal); D53.9 Nutritional anemia, unspecified; R60.0 Localized edema; E78.5 Hyperlipidemia, unspecified; R06.01 Orthopnea
CPT/HCPCS: 80053; 80061; 85027; 83880

== ENCOUNTER 2021-11-28 20:23 | Outpatient (REF) | payer MEDICAID, SELFPAY ==
[2021-11-28 20:15] LABS: HCT 35.7 % (40.0-50.0); HGB 11.9 g/dL (13.5-17.5); MCH 31.9 pg (27.0-33.0); MCHC 33.3 % (32.0-36.0); MCV 96 fL (80-95); MPV 9.6 fL (8.0-11.0); Platelet Count 238 10^3/uL (130-400); RBC 3.73 10^6/uL (4.36-5.78); RDW 12.3 % (11.8-14.1); WBC 6.24 10^3/uL (4.4-10.8)
[2021-11-28 21:10] LABS: Iron 84 ug/dL (65-175); Total Iron Binding Capacity 314 ug/dL (250-450); Transferrin Sat 27 % (20-55)
[2021-11-28 21:30] LABS: Ferritin 88 ng/mL (26-388); Vitamin B12 386 pg/mL (193-986)
== END 2021-11-28 20:24 | disposition home or self-care (01) ==
LOC: NCHCN 20:23
PROVIDERS: PCP Family Medicine; Visit Provider Family Medicine
DX: D64.9 Anemia, unspecified (principal); Z79.891 Long term (current) use of opiate analgesic
CPT/HCPCS: 85027; 82607; 82728; 83540; 83550

== ENCOUNTER 2022-12-13 21:40 | Outpatient (REF) | payer MEDICARE, MEDICAID, SELFPAY ==
[2022-12-13 20:04] LABS: HCT 33.4 % (40.0-50.0); HGB 11.3 g/dL (13.5-17.5); MCH 32.3 pg (27.0-33.0); MCHC 33.8 % (32.0-36.0); MCV 95 fL (80-95); MPV 9.2 fL (8.0-11.0); Platelet Count 255 10^3/uL (130-400); RDW 12.5 % (11.8-14.1); RDW-SD 43.5 fL
[2022-12-13 20:20] LABS: Iron 88 ug/dL (65-175); Total Iron Binding Capacity 352 ug/dL (250-450); Transferrin Sat 25 % (20-55)
[2022-12-13 20:31] LABS: ALT 37 U/L (16-63); AST 20 U/L (15-37); Albumin 3.7 g/dL (3.4-5.0); Alkaline Phosphatase 65 U/L (46-116); Anion Gap 6.6 mmol/L (3-11); BUN 14 mg/dL (7-18); Bilirubin, Total 0.5 mg/dL (0.2-1.0); CO2 28.4 mmol/L (21.0-32.0); CREATININE 0.9 mg/dL (0.70-1.30); Calcium 9.5 mg/dL (8.5-10.1); Chloride 100 mmol/L (98-107); Estimated GFR 95.37 (mL/min/1.73m2); Ferritin 109 ng/mL (26-388); Glucose 111 mg/dL (74-106); Potassium 4.8 mmol/L (3.5-5.1); Sodium 135 mmol/L (136-145)
== END 2022-12-13 21:41 | disposition home or self-care (01) ==
LOC: NCHCN 21:40
PROVIDERS: PCP Family Medicine; Visit Provider Family Medicine
DX: D64.9 Anemia, unspecified (principal); I10 Essential (primary) hypertension
CPT/HCPCS: 80053; 85027; 82728; 83540; 83550

== ENCOUNTER 2023-01-17 15:02 | Outpatient (REF) | payer MEDICARE, MEDICAID, SELFPAY ==
[2023-01-17 18:47] LABS: Reticulocyte 1.3 % (0.5-2.4)
[2023-01-17 18:51] LABS: Anion Gap 8.5 mmol/L (3-11); BUN 12 mg/dL (7-18); CO2 27.5 mmol/L (21.0-32.0); CREATININE 0.8 mg/dL (0.70-1.30); Calcium 9.5 mg/dL (8.5-10.1); Chloride 99 mmol/L (98-107); Estimated GFR 98.21 (mL/min/1.73m2); Glucose 118 mg/dL (74-106); Potassium 4.4 mmol/L (3.5-5.1); Sodium 135 mmol/L (136-145)
== END 2023-01-17 15:03 | disposition home or self-care (01) ==
LOC: NCHCN 15:02
PROVIDERS: PCP Family Medicine; Visit Provider Family Medicine
DX: I10 Essential (primary) hypertension (principal); D64.9 Anemia, unspecified
CPT/HCPCS: 80048; 85045

== ENCOUNTER 2023-05-22 12:42 | Outpatient (REF) | payer MEDICARE, MEDICAID, SELFPAY ==
[2023-05-22 15:40] LABS: ALT 27 U/L (16-63); AST 13 U/L (15-37); Albumin 3.7 g/dL (3.4-5.0); Alkaline Phosphatase 60 U/L (46-116); Anion Gap 7.5 mmol/L (3-11); BUN 11 mg/dL (7-18); Bilirubin, Total 0.4 mg/dL (0.2-1.0); CO2 27.5 mmol/L (21.0-32.0); CREATININE 0.8 mg/dL (0.70-1.30); Calcium 8.8 mg/dL (8.5-10.1); Chloride 103 mmol/L (98-107); Estimated GFR 98.21 (mL/min/1.73m2); Glucose 102 mg/dL (74-106); Magnesium 2.2 mg/dL (1.8-2.4); Potassium 4.7 mmol/L (3.5-5.1); Sodium 138 mmol/L (136-145); Total Protein 6.6 g/dL (6.4-8.2)
[2023-05-22 16:58] LABS: Hemoglobin A1C 6.4 % (<5.7)
== END 2023-05-22 12:43 | disposition home or self-care (01) ==
LOC: NCHCN 12:42
PROVIDERS: PCP Family Medicine; Visit Provider Student in an Organized Health Care Education/Training Program
DX: I10 Essential (primary) hypertension (principal)
CPT/HCPCS: 80053; 83036; 83735

== ENCOUNTER → 2023-08-20 02:53 | Outpatient (CLI) | payer MEDICARE, SELFPAY ==
--- NOTE | 2023-08-20 08:45 | DI.RAD_ITS ---
Exam(s) XR FOOT LT COMPLETE EXAM: XR FOOT LT COMPLETE CLINICAL HISTORY: Left foot pain, M79.672. TECHNIQUE: 2D digital imaging was performed. Three views. COMPARISON: Lower extremity series from 06/23/2010 CR LEFT FOOT COMPLETE from 03/07/2016 CR XR WRIST LT COMP NAVICULAR from 01/12/2019 FINDINGS: BONES: No acute fracture is present. No bony destructive lesion is seen. JOINTS: No dislocation present. Severe degenerative changes are noted at the 1st MTP joint. There is obliteration of the joint space and prominent periarticular spurring. There are subchondral cysts on both sides of the joint. There is hammertoe deformity of the 2nd toe with significant varus angu lation with overlap of the 1st toe. Medial subluxation at the 2nd MTP joint as well as severe varus angulation. Varus deformity is also noted at the 3rd through 5th MTP joints. SOFT TISSUE: Normal. IMPRESSION: Severe degenerative changes 1st MTP joint. Hammertoe deformity of the 2nd toe with severe varus angu lation. DATA REPOSITORY: RADIATION DOSE DELIVERED:
--- NOTE | 2023-08-20 08:45 | DI.RAD_ITS ---
Exam(s) XR FOOT RT COMPLETE EXAM: XR FOOT RT COMPLETE CLINICAL HISTORY: Right foot pain, M79.671. TECHNIQUE: 2D digital imaging was performed. Three views. COMPARISON: None FINDINGS: BONES: A fixation plate is seen at the dorsum spanning the 1st MTP joint. There is a fracture throug h the midportion of the fixation plate. A pin is noted in the 2nd proximal phalanx. A screw is seen in the 2nd metatarsal head. No bony destructive lesion is seen. JOINTS: No dislocation present. Varus deformities of the 2nd through 5th toes. SOFT TISSUE: Normal. IMPRESSION: Fracture through the fixation plate of across the 1st MTP joint. Varus deformities of the 2nd throug h 5th toes. DATA REPOSITORY: RADIATION DOSE DELIVERED:
== END ==
PROVIDERS: PCP Family Medicine; Visit Provider Podiatrist
DX: M79.671 Pain in right foot (principal); M79.672 Pain in left foot
CPT/HCPCS: 73630

== ENCOUNTER 2023-11-08 00:07 | Outpatient (CLI) | payer MEDICARE, SELFPAY ==
--- NOTE | 2023-11-08 | DI.US_ITS ---
Exam(s) MAMMO DIAGNOSTIC BI US BREAST LT LIMITED EXAM: MAMMO DIAGNOSTIC BI and U/S breast LT limited CLINICAL HISTORY: MASS OF L BREAST, N63.20. TECHNIQUE: Craniocaudal and mediolateral oblique Full Field Digital Mammography views with Computer Aided Diagnosis followed by Tomosynthesis and limited left breast ultrasound. COMPARISON: There are no priors for comparison. FINDINGS: Mammography/Tomosynthesis: Masses/Architectural Distortion: There is a flame shaped subareolar density in the left breast. Mini mal breast tissue seen in the right subareolar region. The findings are consistent with gynecomastia . No suspicious masses or areas of architectural distortion are seen. Microcalcifictions: No suspicious pleomorphic-type are seen. Skin Thickening/Nipple Retraction: None. Limited left breast US: Echotexture: Normal appearance of the glandular tissue. Shadowing: No suspicious foci. Cyst: None. Solid lesions: None seen. Ductal dilation: None. IMPRESSION: 1. No evidence of malignancy is noted. Findings most consistent with gynecomastia, left greater than right. 2. Unless there is more urgent need, follow-up screening mammography is recommended, as per [place] [employer] guidelines. 3. The findings were discussed with the patient on the date of the examination. BI-RADS Category 2 - Benign Findings Breast Density - Category B - Scattered areas of fibroglandular density Breast density Category C or D implies that the patient has dense breast tissue. Dense breast tissue can make it harder to find cancer on a mammogram. Dense breast tissue is also associated with an incr eased risk of breast cancer. This information about the result of the mammogram report was provided to the patient to raise their awareness. Use this report when you speak with the patient about their risks for breast cancer, which includes their family history. At that time, you may recommend additional screening tests (Ultrasoun d or MRI) as these tests may add significant information. A negative radiographic report should not delay biopsy if a dominant or clinically suspicious mass is present. Up to ten percent of cancers are not identified on mammography. A negative report may reinforce clinical impression. Adenosis and dense breasts may obscure an underlying neoplasm. False positive reports average 6 to 10%. Patient will receive a letter notifying them of these results.
== END 2023-11-08 00:27 ==
LOC: DI 00:08
PROVIDERS: PCP Student in an Organized Health Care Education/Training Program; Visit Provider Student in an Organized Health Care Education/Training Program
DX: N63.25 Unspecified lump in the left breast, overlapping quadrants (principal); Z12.31 Encounter for screening mammogram for malignant neoplasm of breast
CPT/HCPCS: 76642; 77062; 77066; G0279

== ENCOUNTER 2023-11-25 20:39 | Outpatient (REF) | payer MEDICARE, SELFPAY ==
[2023-11-25 21:59] LABS: Abs Immature Grans 0.01 10^3/uL (0.0-0.06); Absolute Basophil Count 0.04 10^3/uL (0.0-0.2); Absolute Eosinophil Count 0.11 10^3/uL (0.0-0.7); Absolute Monocyte Count 0.79 10^3/uL (0.1-0.8); Absolute Neutrophil Count 2.32 10^3/uL (1.2-6.7); Basophils % 0.7 %; HCT 32.1 % (40.0-50.0); HGB 11.1 g/dL (13.5-17.5); Immature Grans % 0.2 %; Lymphocytes % 40.2 %; MCHC 34.6 % (32.0-36.0); MCV 96 fL (80-95); MPV 9.2 fL (8.0-11.0); Monocytes % 14.4 %; Neutrophils % 42.5 %; Platelet Count 251 10^3/uL (130-400); RBC 3.36 10^6/uL (4.36-5.78); RDW 12.1 % (11.8-14.1); RDW-SD 41.8 fL; WBC 5.47 10^3/uL (4.4-10.8)
[2023-11-26 17:49] LABS: PSA, Screening 0.1 ng/mL (<=4.5)
== END 2023-11-25 20:40 | disposition home or self-care (01) ==
LOC: LBN 20:39
PROVIDERS: PCP Student in an Organized Health Care Education/Training Program; Visit Provider Nurse Practitioner Family
DX: R35.0 Frequency of micturition (principal)
CPT/HCPCS: 84153; 85025; 87086

== ENCOUNTER 2023-12-05 10:03 | Outpatient (CLI) | payer MEDICARE, SELFPAY ==
--- NOTE | 2023-12-05 | DI.CT_ITS ---
Exam(s) CT ABDOMEN PELVIS W EXAM: CT ABDOMEN PELVIS W CLINICAL HISTORY: ABD PAIN R10.9 FREQUENT NIGHTTIME URINATION, MILE ANEMIA. CONCERN FOR. TECHNIQUE: Imaging Protocol: Axial computed tomography images with coronal and sagittal reformatted images were created and reviewed CONTRAST MATERIAL: Intravenous: Omnipaque 350 Contrast volume:100 ml Oral: yes / COMPARISON: No exams were available for comparison FINDINGS: ABDOMEN and PELVIS: Lung Bases: No acute findings. Liver: Normal density. No suspicious mass. Gallbladder and biliary tract: No radiodense calculus. No biliary dilation. Pancreas: Normal density. No abnormal calcifications or inflammatory process. No evidence of mass. Spleen: Normal. Kidneys: Normal size, contour and axis. No radiodense stones. No obstructive uropathy. No suspicious masses seen. Adrenal glands: No masses seen. Vasculature: Abdominal aorta non-dilated. Soft tissues: Small fatty containing right inguinal hernia. Bladder: Partially obscured by artifact. No gross wall thickening. Bowel: No obstruction. No bowel wall thickening. Appendix normal. Peritoneal cavity: No ascites. No focal collection. No mesenteric inflammatory response. Bones: Bilateral hip prostheses create artifact in the pelvis. The bladder and prostate are partiall y obscured. Reproductive organs: Prostate obscured by artifact. Does not appear enlarged. Small bilateral hydro lisette. Lymph nodes: No pathologically enlarged lymph nodes. IMPRESSION:: No acute abnormality in the abdomen or pelvis. RADIATION DOSE DELIVERED: 395.36mGy.cm Total DLP DATA REPOSITORY: All CT scans at this facility are submitted to the National Radiology Data Registry (NRDR) Dose Index Registry (DIR) with the [employer] (ACR). RADIATION OPTIMIZATION: All CT scans at this facility use at least one of these dose optimization te chniques: automated exposure control; mA and/or kV adjustment per patient size (includes targeted exa ms where dose is matched to clinical indication); or iterative reconstruction.
[2023-12-05] MEDS: Barium Sulfate 2% W/V-Creamy Vanilla Smoothie 450 ML BTL PO ×2 (10:39→10:40)
[2023-12-05 10:54] LABS: CREATININE 1.1 mg/dL (0.70-1.30)
[2023-12-05] MEDS: Omnipaque 350 MG/ML 100 ML BTL IJ (12:36)
== END 2023-12-05 10:23 ==
LOC: DI 10:03
PROVIDERS: Radiology Diagnostic Ultrasound; PCP Student in an Organized Health Care Education/Training Program; Visit Provider Student in an Organized Health Care Education/Training Program
DX: R10.9 Unspecified abdominal pain (principal)
CPT/HCPCS: 74177; 82565; J3490

== ENCOUNTER 2024-01-07 01:19 | Outpatient (CLI) | payer MEDICARE, SELFPAY ==
--- NOTE | 2024-01-07 09:00 | DI.US_ITS ---
Exam(s) US AAA SCREENING EXAM: US AAA SCREENING CLINICAL HISTORY: Z13.6 Screening for cardiovascular disorders, former smoker COMPARISON: US ABDOMEN ULTRASOUND (P) from 01/18/[address] ABDOMEN PELVIS W from 12/05/2023 FINDINGS: Abdominal Aorta: Proximal: 2.0 x 2.0 cm Mid: 1.7 x 1.9 cm Distal: 2.0 x 2.0 cm Iliac's: Right: 1.1 x 1.0 cm Left: 1.1 x 1.1 cm No significant atherosclerotic disease is seen. IMPRESSION: No evidence of abdominal aortic aneurysm. DATA REPOSITORY:
== END 2024-01-07 01:39 ==
LOC: DI 01:19
PROVIDERS: PCP Student in an Organized Health Care Education/Training Program; Visit Provider Student in an Organized Health Care Education/Training Program
DX: Z13.6 Encounter for screening for cardiovascular disorders (principal)
CPT/HCPCS: 76706

== ENCOUNTER → 2024-01-23 11:23 | Outpatient (BNVA) | payer MEDICARE, SELFPAY | PROVIDERS: PCP Student in an Organized Health Care Education/Training Program; Referring Provider Student in an Organized Health Care Education/Training Program; Visit Provider Surgery | DX: K40.90 Unilateral inguinal hernia, without obstruction or gangrene, not specified as recurrent (principal); R73.03 Prediabetes | CPT/HCPCS: 99215 ==

== ENCOUNTER 2024-02-18 09:04 | Day surgery (SDC) | payer MEDICARE, SELFPAY ==
--- NOTE | 2024-02-17 14:53 | W.PM.DSUDISC ---
Date of service: 02/18/24 Discharge Plan Disposition Patient Disposition: Home Condition: Good Discharge Details Reason For Visit: right inguinal hernia repair Attending Provider: Cynthia Alvarez Primary Care Provider: Bert Heard Home Meds and New Rx's Prescriptions: New Eliquis 5 mg tablet 5 mg PO BID Qty: 30 3RF Rx Instructions: start 12/18 am Continued lisinopril 10 mg tablet 10 mg PO DAILY furosemide 20 mg tablet 20 mg PO DAILY Patient Comments: 02/18/24 Pt states hasnt taken since approx 01/03/24 ketoconazole 2 % cream 1 applic topical DAILY Qty: 120 6RF Rx Instructions: Apply to toenails once daily omega-3 fatty acids-fish oil [Fish Oil] 360-1,200 mg capsule 1 cap PO DAILY mecobalamin (vitamin B12) 1,000 mcg tablet,chewable 1,000 mcg PO DAILY cholecalciferol (vitamin D3) 25 mcg (1,000 unit) capsule 25 mcg PO DAILY atorvastatin 40 mg tablet 40 mg PO DAILY methadone [Methadose] 10 mg/mL concentrate 85 mg PO DAILY amitriptyline 25 mg tablet 25 mg PO QHS amoxicillin 500 mg tablet 2,000 mg PO ONCE ketoconazole 2 % shampoo 1 applic topical ONCE sildenafil 100 mg tablet 100 mg PO DAILY PRN Rx Instructions: administer 30 minutes to 4 hours before activity tamsulosin 0.4 mg capsule 0.8 mg PO DAILY multivitamin Tablet 1 tab PO DAILY trazodone 100 mg tablet 100 mg PO DAILY cyclobenzaprine 10 mg tablet 10 mg PO HS PRN Discharge Instructions Additional Instructions: Dr. Alvarez HERNIA REPAIR ? POSTOPERATIVE INSTRUCTIONS Patients who have this type of surgery can usually be expected to return to work within two weeks and have minimal amounts of discomfort. ? ACTIVITY: The day of surgery should be spent resting. However, you can be up for short periods of time, I.E., going to the bathroom or kitchen. Avoid lifting or straining. On the day following surgery, you can be up and about as desired. ? LIFTING: Restrict your lifting to no more than five (5) pounds for two weeks after surgery. ??We will decide when you are done with restrictions and when you can return to work, at your follow-up appointment.? No sexual activity for two weeks.? ? DIET: There are no dietary restrictions following surgery. However, you may want to start with small amounts of liquids to avoid nausea the day of surgery. ? INCISION CARE: You will notice purple skin glue closing the incision.? Do not peel this off- it will wear off on its own.? After 24 hours you may shower. The dressing may be replaced for comfort, but is not necessary. ?An ice bag may be applied to the incision for 72 hours following surgery. ? SIGNS OF INFECTION: It is not unusual to have some black and blue discoloration of the skin around the incision, but also scrotum and penis.? ?It will slowly disappear. If you have any increased redness, drainage, fever (above 100 degrees), please contact your doctor for an examination. Because we are starting you on Eliquis, you may be more bruising than the average. Please call us or go to the ER if there is any active bleeding, or swelling that is increasing in size. ? DISCOMFORT: You may expect to have some mild discomfort at the incision sight. If severe pain develops you should contact your doctor for further instructions. ? URINATION: Patients who have surgery occasionally have problems urinating. If you experience problems and are not able to urinate within 6 hours following your surgery, please call your doctor immediately or go to your nearest Emergency Room for evaluation. ? DRIVING: NO driving for three (3) days after surgery, or if you are still taking narcotic pain medication.? ? MEDICATIONS: Alternate Tylenol 1000mg by mouth every 8 hours. ?Make sure you take ibuprofen with food and not on an empty stomach. ?Take the Tylenol and ibuprofen continuously for the first 72hrs- not just when you have pain.? Use the tramadol for breakthrough pain/pain >7.? Use ICE!?? Twenty minutes on, and then off, continuously for the first 72hours. If you are taking narcotic pain medication, follow the instructions on the label and do not drive. Pain medications can make you very constipated. Make sure you are moving your bowels daily. If not, take Miralax or Milk of Magnesia.?? Anesthesia makes you very constipated.? Take a dose of milk of magnesia the morning after surgery. ? REPORT: Unusual swelling, severe pain, unresolved nausea, signs of infection, or difficulty in urination to your surgeon. Follow up in clinic with Dr. Alvarez in 2 weeks.? [phone] -start elliquis 5 po BID 12/18 am. rx sent -wear scrotal support daily x1 wk -expect to be very bruised Activity:: see above Remove Dressings/Wound Care:: 24 hours Shower/Bathe:: 24 hours Diet:: As Tolerated Discharge Orders Discharge Orders: Discharge Order (Routine); Ordered 02/17/24 Ordered By: Cynthia Alvarez DS: Diagnosis Discharge Diagnosis (1) Opioid abuse, in remission: Status: Acute (2) HTN (hypertension): Status: Chronic (3) Essential hypertension: Status: Acute (4) Hyperlipidemia: Status: Acute (5) Activated protein C resistance: Status: Acute Asessment and Plan: needs to be on Elliquis post-op (6) Prediabetes: Status: Acute (7) Obesity: Status: Chronic (8) GERD (gastroesophageal reflux disease): Status: Chronic (9) Right inguinal hernia: Status: Acute Asessment and Plan: The patient is doing well post-op from their [] surgery.? They are having no nausea or vomiting. They are tolerating liquids and a snack. The pt is not having any chest pain or SOB.? Their pain is adequately controlled. They have been able to urinate.? ?HEENT:? no eye pain/drainage/redness/swelling. Mild sore throat ?Cardio- NSR, no chest pain, BP stable- see VS record ?Pulm: no sob or productive cough. No hemoptysis ?Incision- dressing is c/d/i w/ no excessive bleeding or drainage ?I discussed with the patient the findings at the time of surgery and the patient?s progress. ?We reviewed expectations at home; what the patient could expect for recovery time, and in the post-operative period.? We discussed the importance of walking to avoid blood clots and pneumonia.? We discussed and reviewed the patient's post-operative wound care and dressing needs.?? We reviewed their step-mckinley pain management plan, Rx called to the pharmacy of their choice.? We reviewed activity and limitations-see discharge instructions. We reviewed warning signs, and when to seek medical attention- see d/c instructions.?? Patient was given a postoperative follow-up appointment. Patient verbalized understanding of their postoperative instructions, how do to take care of themselves and their incision, and the pain management plan. Please see discharge instructions.? (10) Right hydrocele: Status: Acute (11) JAUN (obstructive sleep apnea): Status: Chronic (12) Heterozygous factor V Leiden mutation:
--- NOTE | 2024-02-17 15:04 | W.PM.OP ---
Operative Note Operative Note PRE-OP DIAGNOSIS: Right complete inguinal hernia with associated hydrocele POST-OP DIAGNOSIS: same (indirect inguinal hernia and hydocele repair ) PROCEDURE: open rightinguinal hernia w/ mesh SURGEON: Cynthia Vaca [employer] PROFESSOR: Nicolle Gregory ANESTHESIA TYPE: Local By Surgeon and General:No Airway Refer to Anesthesia Record ESTIMATED BLOOD LOSS: 20 PATHOLOGY: none sent COMPLICATIONS: None Patient was transported to: PACU Patient's condition: stable Procedure Description: INDICATIONS: The pt is here today for surgery regarding symptomatic --- inguinal hernia that has failed outpatient conservative medical management and he is here today for repair. Informed consent was obtained, explaining risks and benefits of the procedure including but not limited to bleeding, infection, pneumonia, blood clots, chronic pain, chronic numbness, damage to testicle resulting in removal, recurrence of hernia, reaction to Mesh necessitating removal, and other unforetold complications, and complications of anesthesia-which were addressed by the [employer]. The patient is marked in preOp prior to the procedure DESCRIPTION OF PROCEDURE:? The pt is then brought to the operative room suite. Anesthesia was administered per the Department of Anesthesia. ?A nerve block was performed by anesthesia under US guidance. The patient was prepped and draped in the usual sterile fashion using ChloraPrep scrub solution. Pause for the cause was done. He did receive preop IV antibiotics, and 30 mL of .25% Marcaine w/ epinephrine was used for local anesthetization. A #12 blade was used to make an incision over the external ring. Electrocautery used to provide hemostasis and dissect down to the fascia. The fascia was pretty much obliterated and there was nothing to open. The cord is elevated. The nerve was not identified. There large is a cord lipomas.? Electro-cautery is used to provide hemostasis. A Gennaro drain was placed around the cord to assist in mobilization. The cord was explored. ?There was is large hernia sac on the cord. There is no direct hernia pushing through the floor. The hernia sac is dissected off the cord using a combination of blunt dissection and electrocautery.? Electrocautery is used to provide hemostasis.? This is a complete inguinal hernia that does extend all the way down and cause a hydrocele. The patent processes vaginalis is dissected off the cord. The testicle was then delivered out the testicle. Once we got to the hydrocele sac itself, we then opened and delivered the testis, drained clear fluid. There was moderate amount of scarring on the testis itself from the tunica vaginalis. It was then wrapped around the back and sutured in place with a running suture of 4-0 chromic in a Lord maneuver. Once this was done, a drain was placed in the base of the scrotum and then the testis was placed back into the scrotum in the proper orientation. The testes were then placed back into the scrotum in a proper orientation, The hernia sac is dissected off the cord using a combination of blunt dissection and electrocautery.? Electrocautery is used to provide hemostasis.?? There are no contents within the hernia sac.? High ligation of the sac was done. The hernia sac is than inverted and returned to the abdominal cavity.? A large size plug is than inserted into the defect through the internal ring, and over sewn to tighten up the ring with 2-0 vicryl.? Please see RN notes from Lot number of the [employer] mesh patch/plug.? The cord structures are still able to freely move through the ring itself.? The patch was then placed onto the floor, and using 2-0 Vicryl, sewn into the pubic tubercle and the shelving portions of the inguinal ligament, in the standard Lichenstein fashion.? ?The tails of the mesh are brought around the cord, sewn together w/ 2-0 Vicryl, and tucked under the external oblique.? The wound was copiously irrigated. There was no bleeding noted. The drain was removed. All structures are returned to normal anatomical position. The nerve is not sewn into the mesh, nor caught up in any sutures. The external oblique is re-approximated using 2-0 vicryl in a running fashion. ?Deep tissue was approximated with 3-0 Vicryl in a running fashion, and skin was approximated with 4-0 Monocryl in a running subcuticular fashion. Skin glue and sterile dressings are applied. The patient tolerated the procedure without complications to recovery in stable condition. CYNTHIA VACA, Date of Procedure: 02/18/24
[2024-02-18] VITALS (21 sets, daily range): BP systolic 92–130; BP diastolic 41–73; PULSE 60–80; RESP 12–23; TEMP 36.4–36.9; O2SAT 88–100; BMI 31.4
--- NOTE | 2024-02-18 09:20 | ANES.PREOP_ITS ---
General Info Date of Service Date Performed: 02/18/24 Height: 5 ft 3.5 in Weight: 81.675 kg Body Mass Index (BMI): 31.4 Surgical Procedure: Operation Date: 02/18/24 09:55 Proposed Procedure Side Surgeon p Herniorrhaphy Inguinal Right Cynthia Alvarez DO s Hydrocele Repair Cynthia Alvarez DO Meds Allergies and Home Medications Allergies Allergy/AdvReac Type Severity Reaction Status Date / Time ragweed pollen Allergy Mild Unknown Verified 02/18/24 09:30 sulfamethoxazole (From Allergy Unknown Other (See Verified 02/18/24 09:30 Bactrim) Comment) trimethoprim (From Bactrim) Allergy Unknown Skin Rash Verified 02/18/24 09:30 cephalexin Allergy Skin Rash Verified 02/18/24 09:30 epinephrine (From Tasha-Phrine) Allergy Other (See Verified 02/18/24 09:30 Comment) almonds Allergy Unknown Uncoded 02/18/24 09:30 Home Medication ?Medication ?Instructions ?Recorded atorvastatin 40 mg tablet 40 mg PO DAILY 10/18/21 lisinopril 10 mg tablet 10 mg PO DAILY 11/08/21 methadone 10 mg/mL oral 85 mg PO DAILY 03/19/22 concentrate (Methadose) furosemide 20 mg tablet 20 mg PO DAILY 07/26/23 ketoconazole 2 % topical cream 1 applic topical DAILY #120 grams 08/20/23 amitriptyline 25 mg tablet 25 mg PO QHS 12/10/23 amoxicillin 500 mg tablet 2,000 mg PO ONCE 12/10/23 ketoconazole 2 % shampoo 1 applic topical ONCE 12/10/23 multivitamin 1 tab PO DAILY 12/10/23 sildenafil 100 mg tablet 100 mg PO DAILY PRN 12/10/23 tamsulosin 0.4 mg capsule 0.8 mg PO DAILY 12/10/23 trazodone 100 mg tablet 100 mg PO DAILY 01/15/24 cholecalciferol (vitamin D3) 25 25 mcg PO DAILY 01/23/24 mcg (1,000 unit) capsule cyclobenzaprine 10 mg tablet 10 mg PO HS PRN 01/23/24 mecobalamin (vitamin B12) 1,000 1,000 mcg PO DAILY 01/23/24 mcg chewable tablet omega-3 fatty acids-fish oil 360 1 cap PO DAILY 01/23/24 mg-1,200 mg capsule (Fish Oil) apixaban 5 mg tablet (Eliquis) 5 mg PO BID #30 tabs 02/17/24 Current Visit Medications: Current Medications Generic Name Dose Route Start Last Admin Trade Name Brandon PRN Reason Stop Dose Admin Acetaminophen 1,000 mg 02/18/24 06:00 Acetaminophen 500 Mg Tab PO 03/18/24 23:59 PREOP VICTOR HUGO Gabapentin 600 mg 02/18/24 06:00 Gabapentin 300 Mg Cap PO 03/18/24 23:59 PREOP VICTOR HUGO Clindamycin Phosphate/Dextrose 600 mg in 50 mls @ 100 mls/hr 02/18/24 06:00 Cleocin In D5w IVPB 02/18/24 23:59 PREOP VICTOR HUGO Sodium Chloride 500 mls @ 30 mls/hr 02/18/24 09:00 Saline 500ml Bag IV 03/19/24 08:59 INFUSION VICTOR HUGO IV Miscellaneous Supplies 1 each 02/18/24 06:00 Iv Access IV 03/18/24 23:59 DIRECTED VICTOR HUGO Morphine Sulfate 2 mg 02/17/24 21:30 Morphine 4 Mg/Ml Syr IVP 03/18/24 21:29 Q1H PRN PRN Sodium Chloride 0 ml 02/18/24 06:00 Normal Saline Flush 10 Ml Syr IV 03/18/24 23:59 PRN PRN Sodium Chloride 0 ml 02/18/24 06:00 Normal Saline 10 Ml Vial IJ 03/18/24 23:59 DIRECTED PRN Sterile Water 0 ml 02/18/24 06:00 Water,Injection,Sterile 10 Ml Vial IJ 03/18/24 23:59 DIRECTED PRN PFSH Active Problems Active Problems: Problem Status Onset Code Right hydrocele Acute N43.3 Opioid abuse, in remission Acute F11.11 Right inguinal hernia Acute K40.90 Erectile dysfunction Acute N52.9 JAUN (obstructive sleep apnea) Chronic G47.33 Presence of hip joint prosthesis Acute Z96.649 Prediabetes Acute R73.03 Nutritional anemia Acute D53.9 Essential hypertension Acute I10 Hernia of abdominal cavity Acute K46.9 Acquired deformity of toe Acute M20.60 Bilateral tinnitus Acute H93.13 Activated protein C resistance Acute D68.51 Obesity Chronic E66.9 Pain in left wrist Acute M25.532 Carpal tunnel syndrome of right wrist Acute G56.01 Localized edema Acute R60.0 GERD with apnea without esophagitis Acute K21.9, R06.81 Idiopathic osteoarthritis Acute M19.90 Pain, joint, shoulder, right Acute M25.511 Acquired hammer toe of left foot Acute M20.42 Onychomycosis Acute B35.1 Mass of left breast Acute N63.20 Gynecomastia Acute N62 Hallux rigidus, left foot Acute M20.22 Arthralgia of left temporomandibular joint Acute M26.622 Increased frequency of urination Acute R35.0 Edema of lower extremity Acute R60.0 Hammertoe of left foot Acute M20.42 Otalgia of left ear Acute H92.02 Bilateral sensorineural hearing loss Acute H90.3 GERD (gastroesophageal reflux disease) Chronic K21.9 HTN (hypertension) Chronic I10 Hoarseness Acute R49.0 Hyperlipidemia Acute Medical History Medical History Disorder of left eustachian tube Psychiatric disorder H/O depression headache Macrocytic anemia Heterozygous factor V Leiden mutation Opioid dependence Alcohol dependence in remission Abdominal hernia UTI symptoms Low back pain Abnormal EKG Seborrheic dermatitis Tinnitus Edema Orthopnea COVID-19 Urinary hesitancy Deviated septum Arthritis of carpometacarpal (CMC) joint of left thumb Internal hemorrhoids Encounter for screening colonoscopy Current Visit- YES Opioid abuse Hemorrhoids Depressive disorder Carpal tunnel syndrome, bilateral Rhinitis, allergic Tobacco use quit 2006 Left foot pain Right shoulder pain Sinusitis Impotence Diverticulitis Factor V Leiden Anemia Alcohol abuse Breast pain, left Sleep apnea uses CPAP Avascular necrosis of bones of both hips Family history of colon cancer Degenerative joint disease of both hips Hx of skin cancer, basal cell Surgical History Surgical History History of carpal tunnel release bilateral. History of shoulder surgery left rotator cuff. History of hip replacement Bilateral/avascular necrosis. S/P left inguinal hernia repair (~08/12/19) History of placement of ear tubes S/P colonoscopy (~2009) 01/20/18 right toe fusion right foot surgery for congenital defect excision skin lesion Back Tobacco Smoking/Tobacco Use Status: Former Tobacco Use Alcohol Alcohol Intake: former Substance Use Substance use: Current Sobriety Substance use type: heroin Vital Signs and Lab Results Lab Results Blood Type / Crossmatch: No Data to Display Complete Blood Count: No Data to Display Complete Metabolic Panel: No Data to Display Liver Function Panel: No Data to Display Coagulation Panel: No Data to Display Cardiac Panel: No Data to Display Arterial Blood Gas: No Data to Display Venous Blood Gas: No Data to Display Pancreas Panel: No Data to Display Thyroid Panel: No Data to Display Infectious Disease: No Data to Display Blood Cultures: No Data to Display Toxicology Panel: No Data to Display Imaging and Studies Imaging and Studies Study information below may be from another EMR and interpreted by another provider. Please see original notes in EMR for more complete details. Echocardiogram Summary: EXAM: Comprehensive 2D, Doppler, and color-flow Echocardiogram Patient Location: [facility] Attendant: Saira Trinidad RDCS (AE) Indications: Abnormal EKG, HTN,Alcohol and Opioid use, Abnormal EKG Other Information Study Quality: Adequate Conclusion Normal left ventricular wall thickness and chamber size. Estimated ejection fraction is 60%. Wall motion is normal Normal right ventricular size and systolic function Both atria are normal in size There is no structural or hemodynamically significant valvular disease Normal estimated right ventricular systolic pressure, 25 mmHg Wall motion Left Ventricle The left ventricle is normal size. The left ventricular systolic function is normal. The left ventricular ejection fraction is within the normal range. There is normal left ventricular wall thickness. There is normal LV segmental wall motion. There is no ventricular septal defect visualized. LVEF is 60%. Right Ventricle The right ventricle is normal size. The right ventricular systolic function is normal. The RVSP is 25.3mmHg. Atria The left atrium size is normal. The right atrium size is normal. The interatrial septum is intact with no evidence for an atrial septal defect. Aortic Valve The aortic valve is normal in structure. Aortic valve is trileaflet. There is no aortic valvular stenosis. Trace aortic regurgitation. Mitral Valve The mitral valve is normal in structure. No evidence of mitral valve stenosis. Trace mitral regurgitation. Tricuspid Valve The tricuspid valve is normal in structure. There is no tricuspid valve stenosis. Trace tricuspid regurgitation. Pulmonic Valve The pulmonary valve is normal in structure. There is no pulmonic valvular stenosis. Trace pulmonic regurgitation. Great Vessels The aortic root is normal in size. The ascending aorta is normal in size. Aortic arch is normal in caliber. IVC is normal in size and collapses >50% with inspiration. Pericardium There is no pericardial effusion. 2D Dimensions IVSD d PLAX 0.91 cm M: 0.6-1.2LV Vol A2C d MOD 81.7 mL LVPW d PLAX 0.92 cm M: 0.6 - 1.2LV Vol A4C d MOD 100.3 mL LVID d PLAX 4.88 cm M: 4.2 - 5.8LA vol/ BSA A2C s A-L26.2 mL/m2 LVDs 3.35 cm M: 2.5 - 4.0LA vol/ BSA A4C s A-L27.8 mL/m2 Ao Root d 2.61 cm M: 3.1 - 3.7LA Vol/ BSA Biplane s A-L 28.6 mL/m2 RA Area A4C12.88 cm2LA Area A4C s MOD 17.84 cm2 RA Vol/ BSA A4C s A-L 16.5 mL/m2LA Area A2C s MOD 16.32 cm2 Ao Asc Diam d 3.38 cm M: 2.6 - 3.4LV EF A4C MOD 57.5 % LV EF Teichholz 58.1 %LV EF A2C MOD 58.8 % LVEF (Baig's)58.60 % M: 52 - 72LV EF Biplane MOD 58.6 % LV Nzbktv32.19 mL M: 62 - 982YE93.19 mL LV Volume Index40.66 mL/m2 M: 34 - 74SV Index30.58 mL/m2 LV Vol Biplane MOD 94.2 mL FS30.65 % M-Mode TAPSE 2.17 cm (M/F) >1.7 LV Diastology MV E' medial0.073 (>0.07 m/s)E/A Ratio 0.7 LV E/e MED8.40 (<14)MV E Vmax 0.62 (0.4-1.3 m/s) MV E' lateral0.082 (>0.1 m/s)MV A Vmax 0.85 (0.4-1.3 m/s) LV E/e LAT7.55 (<14)MV E/A Ratio 0.72 MV E/E' medial 8.44 MV E/E' lateral7.56 Aortic Valve LVOT Area3.27 cm2AoV Area Vmax2.46 cm2 LVOT Vmax 1.19 m/sAoV Area/ BSA (Vmax)1.36 cm2/m2 LVOT Mean Darrel.0.79 m/sAVA Mean Darrel.2.22 cm2 LVOT Peak Grad 5.6 mmHgAVA Mean Darrel. Index1.23 cm2/m2 LVOT Mean Grad 2.9 mmHg LVOT VTI0.218 m LVOT Diam s 2.00 cm AoV Vmax1.58 m/s Velocity Ratio 0.75 AoV Mean Darrel.1.17 m/s AoV Peak Grad10.0 mmHg LVOT SV 71.19 mL AoV Mean Grad5.9 mmHg AoV VTI0.263 m AoV Area VTI2.71 cm2 AoV Area/ BSA (VTI)1.50 cm/m2 Mitral Valve MV DT 282 (160-240 msec) MV PHT82 msec MV Area PHT 2.69 cm2 MV VTI 0.257 m MV Area VTI 2.76 (4.0-6.0 cm2) Pulmonary Valve PV Vmax 1.12 (0.5-1.5 m/s)RVOT Peak Gr.3.00 mmHg PV Peak Grad 5.0 mmHgRVOT Mean Gr.1.55 mmHg PV Mean Grad 2.9 mmHgRVOT VTI0.154 m PV VTI 0.188 mRVOT Vmax 0.87 m/s Tricuspid Valve TR Peak Grad 22.3 mmHgTR Vmax 2.36 m/s RA Pressure 3.00 mmHg RVSP (TR) 25.3 mmHg Anesthesia Assessment and Plan Anesthesia History Personal History: No History of Anesthesia Complications Family History: No Family History of Anesthesia Complications Exercise Tolerance Exercise Tolerance: Metabolic Equivalents>4 Pertinent Negatives Pertinent Negatives: No Symptoms of GERD, No Major Cardiovascular Symptoms or Complaints, No Major Pulmonary Symptoms or Complaints and No History of CVA/TIA Cardiac & Pulmonary Exam Cardiac Exam: Normal S1/S2 Heart Sounds Pulmonary Exam: Clear Bilateral Breath Sounds Implantable Cardiac Device Does patient have a Pacemaker or an ICD?: No Airway Exam Known Difficult Airway: No Mallampati Class: 2 Mouth Opening: Normal (> 3cm) Thyromental Distance: Greater than 3 cm Neck Range of Motion: Full ROM Neck Circumference: Normal Teeth Condition: Normal Dentition ASA Classification ASA Score: ASA 2 Emergency Case?: No NPO Status NPO Status: NPO Clears >2 hours, Solids >8 hours Anesthesia Plan Resuscitation Status: Full Code Anesthesia Technique: General Anesthesia Airway Planned: LMA Pain Management: Surgeon and patient request nerve block Monitors Used: Standard Monitors and SedLine Preoperative Comments:: Last hernia unanticipated difficult airway, multiple LMA exchanges to MAC/Montiel blades, successful intubation with Glidescope. Planned elective Glidescope intubation for today's scheduled surgery.
[2024-02-18] MEDS: Acetaminophen 500 MG TAB 1000 MG PO (09:56)
[2024-02-18] MEDS: Gabapentin 300 MG CAP 600 MG PO (09:56)
[2024-02-18] MEDS: Normal Saline 500 ML 30 ML IV (10:00)
[2024-02-18] MEDS: CLINDAMYCIN 600 MG/50 ML BAG 100 MG IVPB (10:28)
--- NOTE | 2024-02-18 11:03 | W.ANESNERVE ---
Nerve Block Single Injection Procedure Date and Time Date Performed: 02/18/24 Procedure Start: 10:35 Location Where Procedure Performed Procedure Location: Operating Room Procedure Stop: 10:53 Reason Performed: Postoperative Analgesia Requesting Provider: Cynthia Alvarez Timeout Performed Timeout Performed: Yes Monitoring Used ECG, Blood Pressure, SpO2 and See EMR for corresponding vital signs Sterility Sterility: Hand Hygiene, Surgical Cap, Surgical Mask and Sterile Gloves Sedation Given During Procedure Sedation Given (Indicate Dose Given): No Sedation given Patient Mental Status Patient Mental Status: Performed under general anesthesia Nerve Block 1st Nerve Block: Laterality: Right Block Type: TAP Unilateral Ultrasound Image Saved?: Yes Needle / Catheter Used: 100mm SonoPlex II Local Anesthetic Bolus (Indicate Dose Given): Lidocaine used for local infiltration of skin, Injected in 3-5ml increments after negative blood aspiration, Blood noted on aspiration (Needle repositioned during initial attempt, needle removed and line cleared), Bupivacaine 0.25% Dose:: 15mL and Exparel Dose:: 10mL Additives (Indicate Dose Given): None Ultrasound: Sterile probe cover and gel used Nerve Stimulator: Not Used Paresthesia: None Procedure Tolerated: No Complications Procedure Outcome: Successful Procedure Comment: Attempt x1 PRISCILA Fink with difficulty obtaining clear view of fascial planes. Joanie Godwin CRNA attempt x1, see note above. Performed By: Joanie Godwin
[2024-02-18] MEDS: Bupivacaine 0.25% Pres-Free 30 ML VIAL (11:18)
[2024-02-18] MEDS: Ketorolac 30 MG/ML VIAL IVP (13:23)
--- NOTE | 2024-02-18 14:54 | W.ANESPOSTOP ---
Postoperative Evaluation Date, Time and Location Date Performed: 02/18/24 Time Performed: 14:52 Patient Location: Day Surgery Unit Vital Signs Most Recent Imported Vital Signs: Most Recent Vital Signs Temp Pulse Resp BP Pulse Ox 36.4 C L 80 16 110/62 95 02/18/24 14:07 02/18/24 14:07 02/18/24 14:07 02/18/24 14:07 02/18/24 14:07 Pain Score Most Recent Pain Score: Most Recent Pain Score Pain Level 3 02/18/24 14:07 Assessment Mental Status: Awake (Alert & Oriented to Patient Baseline) Airway and Respiratory Function: Patent airway with normal (patient baseline) respiratory exam Cardiovascular Function: Hemodynamically Stable Hydration Status: Adequately Hydrated Nausea & Vomiting: No Nausea or Vomiting Pain: Pain is tolerable per patient Peripheral Nerve Block: Regional nerve block not resolved at time of post operative discharge
== END 2024-02-18 14:55 | disposition home or self-care (01) ==
LOC: SUR 09:05
PROVIDERS: PCP Student in an Organized Health Care Education/Training Program; Visit Provider Surgery
PROC: (CPT 49505; principal; 2024-02-18 09:45)
PROC: (CPT 49505; 2024-02-18 09:45)
DX: K40.90 Unilateral inguinal hernia, without obstruction or gangrene, not specified as recurrent (principal); N43.2 Other hydrocele; G47.33 Obstructive sleep apnea (adult) (pediatric); I10 Essential (primary) hypertension; E78.5 Hyperlipidemia, unspecified; R73.03 Prediabetes; F11.11 Opioid abuse, in remission
CPT/HCPCS: 49505; 55500; 64486; C1781; C9290; J0665; J0737; J1100; J1885; J2371; J2405; J2704

== ENCOUNTER 2024-02-21 13:51 | Outpatient (CLI) | payer MEDICARE, SELFPAY ==
[2024-02-21 14:21] LABS: Prothrombin Time 10.2 sec (9.1-11.1)
== END 2024-02-21 13:52 | disposition home or self-care (01) ==
LOC: LBO 13:52
PROVIDERS: PCP Student in an Organized Health Care Education/Training Program; Visit Provider Surgery
DX: D68.51 Activated protein C resistance (principal); K40.90 Unilateral inguinal hernia, without obstruction or gangrene, not specified as recurrent; Z79.01 Long term (current) use of anticoagulants
CPT/HCPCS: 36415; 85610

== ENCOUNTER → 2024-03-02 11:30 | Outpatient (BNVA) | payer MEDICARE, SELFPAY | PROVIDERS: PCP Student in an Organized Health Care Education/Training Program; Referring Provider Student in an Organized Health Care Education/Training Program; Visit Provider Surgery ==

== ENCOUNTER 2024-03-02 14:26 | Outpatient (CLI) | payer MEDICARE, SELFPAY ==
[2024-03-02 12:39] LABS: Abs Immature Grans 0.02 10^3/uL (0.0-0.06); Absolute Basophil Count 0.03 10^3/uL (0.0-0.2); Absolute Eosinophil Count 0.11 10^3/uL (0.0-0.7); Absolute Lymphocyte Count 0.62 10^3/uL (1.2-3.4); Absolute Monocyte Count 0.64 10^3/uL (0.1-0.8); Absolute Neutrophil Count 5.62 10^3/uL (1.2-6.7); Basophils % 0.4 %; Eosinophils % 1.6 %; HCT 32.5 % (40.0-50.0); Immature Grans % 0.3 %; Lymphocytes % 8.8 %; MCH 32.8 pg (27.0-33.0); MCHC 33.8 % (32.0-36.0); MCV 97 fL (80-95); MPV 8.2 fL (8.0-11.0); Monocytes % 9.1 %; Neutrophils % 79.8 %; Platelet Count 217 10^3/uL (130-400); RBC 3.35 10^6/uL (4.36-5.78); RDW 12.2 % (11.8-14.1); RDW-SD 43.7 fL; WBC 7.04 10^3/uL (4.4-10.8)
[2024-03-02 12:49] LABS: Prothrombin Time 10.3 sec (9.1-11.1)
[2024-03-02 13:19] LABS: Ferritin 100 ng/mL (26-388); Folate 17.1 ng/mL (8.6-20.0); Vitamin B12 886 pg/mL (193-986)
== END 2024-03-02 14:27 | disposition home or self-care (01) ==
LOC: LBO 14:26
PROVIDERS: PCP Student in an Organized Health Care Education/Training Program; Visit Provider Surgery
DX: D53.9 Nutritional anemia, unspecified (principal); K40.90 Unilateral inguinal hernia, without obstruction or gangrene, not specified as recurrent; D68.51 Activated protein C resistance; Z79.01 Long term (current) use of anticoagulants
CPT/HCPCS: 36415; 82607; 82728; 82746; 85025; 85610

== ENCOUNTER 2024-03-05 16:04 | Outpatient (CLI) | payer MEDICARE, SELFPAY ==
[2024-03-05 15:39] LABS: INR 1.2 (0.9-1.1); Prothrombin Time 11.6 sec (9.1-11.1)
== END 2024-03-05 16:05 | disposition home or self-care (01) ==
LOC: LBO 16:05
PROVIDERS: PCP Student in an Organized Health Care Education/Training Program; Visit Provider Surgery
DX: Z79.01 Long term (current) use of anticoagulants (principal)
CPT/HCPCS: 36415; 85610

== ENCOUNTER 2024-03-09 13:52 | Outpatient (CLI) | payer MEDICARE, SELFPAY ==
[2024-03-09 14:08] LABS: INR 1.6 (0.9-1.1); Prothrombin Time 15.1 sec (9.1-11.1)
== END 2024-03-09 13:53 | disposition home or self-care (01) ==
LOC: LBO 13:53
PROVIDERS: PCP Student in an Organized Health Care Education/Training Program; Visit Provider Surgery
DX: D68.51 Activated protein C resistance (principal); Z79.01 Long term (current) use of anticoagulants; K40.90 Unilateral inguinal hernia, without obstruction or gangrene, not specified as recurrent
CPT/HCPCS: 36415; 85610

== ENCOUNTER 2024-03-16 14:48 | Outpatient (CLI) | payer MEDICARE, SELFPAY ==
[2024-03-16 15:30] LABS: INR 2.1 (0.9-1.1)
== END 2024-03-16 14:49 | disposition home or self-care (01) ==
LOC: LBO 14:49
PROVIDERS: PCP Student in an Organized Health Care Education/Training Program; Visit Provider Surgery
DX: D68.51 Activated protein C resistance (principal); Z79.01 Long term (current) use of anticoagulants; K40.90 Unilateral inguinal hernia, without obstruction or gangrene, not specified as recurrent
CPT/HCPCS: 36415; 85610

== ENCOUNTER 2024-03-23 03:24 | Outpatient (CLI) | payer MEDICARE, SELFPAY ==
[2024-03-23 16:10] LABS: INR 1.9 (0.9-1.1); Prothrombin Time 18.4 sec (9.1-11.1)
== END 2024-03-23 03:25 | disposition home or self-care (01) ==
LOC: LBO 03:24
PROVIDERS: PCP Student in an Organized Health Care Education/Training Program; Visit Provider Surgery
DX: Z79.01 Long term (current) use of anticoagulants (principal)
CPT/HCPCS: 36415; 85610

== ENCOUNTER → 2024-05-06 15:01 | Outpatient (BNVA) | payer MEDICARE, SELFPAY | PROVIDERS: PCP Student in an Organized Health Care Education/Training Program; Referring Provider Student in an Organized Health Care Education/Training Program; Visit Provider Nurse Practitioner Gerontology | DX: N40.1 Benign prostatic hyperplasia with lower urinary tract symptoms (principal); N13.8 Other obstructive and reflux uropathy; N52.9 Male erectile dysfunction, unspecified | CPT/HCPCS: 51798; 99215 ==

== ENCOUNTER 2024-06-14 21:00 | Emergency (ER) | payer MEDICARE, SELFPAY ==
[2024-06-14 21:09] VITALS: BP 107/74; PULSE 91; RESP 16; TEMP 39.1; O2SAT 95
--- NOTE | 2024-06-14 21:15 | DI.RAD_ITS ---
Exam(s) XR CHEST 2V PA LATERAL EXAM: XR CHEST 2V PA LATERAL CLINICAL HISTORY: cough x 5 days. TECHNIQUE: 2D digital imaging was performed. COMPARISON: No exams were available for comparison FINDINGS: 2 views: Heart size is normal. The mediastinum is not widened. Right lung is clear. There is, however, significant infiltrate in the left lung predominately in the lingular segment. Slight blunting of left costophrenic angle noted indicating small amount of pleur al fluid. No pleural fluid on the opposite-right side IMPRESSION: Left lung lingular infiltrate, probably infectious and small ipsilateral left pleural effusion.Follow -up to radiographic resolution recommended. DATA REPOSITORY: RADIATION DOSE DELIVERED:
--- NOTE | 2024-06-14 21:17 | ED.GENADUL_ITS ---
Discharge Plan Disposition Condition: Stable Discharge Details Chief Complaint: Fever Clinical Impression: Influenza A Primary Care Provider: Bert Heard ED Provider: Isaac Lassiter Home Meds and New Rx's Prescriptions: Continued lisinopril 10 mg tablet 10 mg PO DAILY saw palmetto 500 mg capsule 500 mg PO BID Rx Instructions: give with food (meal/snack) tamsulosin 0.4 mg capsule 0.4 mg PO DAILY furosemide 20 mg tablet 20 mg PO DAILY Patient Comments: 02/18/24 Pt states hasnt taken since approx 01/03/24 ketoconazole 2 % cream 1 applic topical DAILY Qty: 120 6RF Rx Instructions: Apply to toenails once daily omega-3 fatty acids-fish oil [Fish Oil] 360-1,200 mg capsule 1 cap PO DAILY mecobalamin (vitamin B12) 1,000 mcg tablet,chewable 1,000 mcg PO DAILY cholecalciferol (vitamin D3) 25 mcg (1,000 unit) capsule 25 mcg PO DAILY atorvastatin 40 mg tablet 40 mg PO DAILY methadone [Methadose] 10 mg/mL concentrate 85 mg PO DAILY ketoconazole 2 % shampoo 1 applic topical ONCE sildenafil 100 mg tablet 100 mg PO DAILY PRN Rx Instructions: administer 30 minutes to 4 hours before activity multivitamin Tablet 1 tab PO DAILY cyclobenzaprine 10 mg tablet 10 mg PO HS PRN HPI General Date/Time Provider Initiated Documentation: 06/14/24 21:15 . HPI Narrative: 68 year-old male presents to ED today by POV/ambulating with a chief complaint of fever, cough, headache, body aches with onset 4-5 days ago. States he had a fever of 105F at home, currently 102F on arrival, had ibuprofen and Excedrin migraine at 1400 today. Quality described as generalized malaise, cough, no radiation to shortness of breath/respiratory distress, endorses lung pain only when coughing, denies nausea/vomiting. Severity is described as moderate. Palliating factors include OTC cold meds with mild relief. Provoking factors include nothing specific. Events leading up to the incident/Associated Symptoms: Patient did receive a flu shot last October. Patient not anticoagulated. Related Data Home Medications ?Medication ?Instructions ?Recorded ?Confirmed atorvastatin 40 mg tablet 40 mg PO DAILY 10/18/21 06/14/24 lisinopril 10 mg tablet 10 mg PO DAILY 11/08/21 06/14/24 methadone 10 mg/mL oral 85 mg PO DAILY 03/19/22 06/14/24 concentrate (Methadose) furosemide 20 mg tablet 20 mg PO DAILY 07/26/23 06/14/24 ketoconazole 2 % topical cream 1 applic topical DAILY #120 grams 08/20/23 06/14/24 ketoconazole 2 % shampoo 1 applic topical ONCE 12/10/23 06/14/24 multivitamin 1 tab PO DAILY 12/10/23 06/14/24 sildenafil 100 mg tablet 100 mg PO DAILY PRN 12/10/23 06/14/24 cholecalciferol (vitamin D3) 25 25 mcg PO DAILY 01/23/24 06/14/24 mcg (1,000 unit) capsule cyclobenzaprine 10 mg tablet 10 mg PO HS PRN 01/23/24 06/14/24 mecobalamin (vitamin B12) 1,000 1,000 mcg PO DAILY 01/23/24 06/14/24 mcg chewable tablet omega-3 fatty acids-fish oil 360 1 cap PO DAILY 01/23/24 06/14/24 mg-1,200 mg capsule (Fish Oil) saw palmetto 500 mg capsule 500 mg PO BID 05/06/24 06/14/24 tamsulosin 0.4 mg capsule 0.4 mg PO DAILY 05/06/24 06/14/24 Previous Rx's ?Medication ?Instructions ?Recorded ketoconazole 2 % topical cream 1 applic topical DAILY #120 grams 08/20/23 Allergies Allergy/AdvReac Type Severity Reaction Status Date / Time ragweed pollen Allergy Mild Unknown Verified 06/14/24 21:15 sulfamethoxazole (From Allergy Unknown Other (See Verified 06/14/24 21:15 Bactrim) Comment) trimethoprim (From Bactrim) Allergy Unknown Skin Rash Verified 06/14/24 21:15 cephalexin Allergy Skin Rash Verified 06/14/24 21:15 epinephrine (From Tasha-Phrine) Allergy Other (See Verified 06/14/24 21:15 Comment) almonds Allergy Unknown Uncoded 06/14/24 21:15 General Stated Complaint: Fever SHIRA: 3 Review of Systems All systems reviewed & are unremarkable except as noted in HPI and below Exam Narrative Exam Narrative: GENERAL APPEARANCE: Well-nourished, non-toxic, awake and alert, atraumatic, no acute distress. SKIN: Warm, pink, dry, intact, without rashes/lesions/ulcerations. HEAD: Normocephalic, atraumatic, normal hair distribution for gender/age. EYES: Normal conjunctiva, no exudates on lids/lashes. ENT: Nares patent, no circumoral cyanosis, no facial swelling NECK: Supple, trachea midline, painless cervical ROM. LUNGS/CHEST: Lungs CTA bilaterally, non-labored respirations, normal A/P diameter, symmetrical expansion, no chest wall deformity HEART (CV/PV): Regular rate and rhythm without murmur, no peripheral edema, no JVD. ABDOMEN: Soft, non-distended, no guarding. MSK: Normal ROM, no swelling/deformity to bilateral UEs or LEs, moving all extremities without weakness, no cyanosis, spine midline without tenderness, normal curvature. NEURO: Mental Status AAOx4 - alert to person, place, time, events No facial droop, no forehead involvement. Motor: No focal weakness - strength 5/5 in bilateral UEs and L Es, proximal and distal, symmetric. Sensory: sensation intact to light touch globally. Gait normal: patient ambulated without ataxia into ED room. PSYCH: euthymic, cooperative, pleasant, appropriate speech Course Vital Signs Vital signs: Vital Signs Temperature 39.1 C H 06/14/24 21:09 Pulse 91 H 06/14/24 21:09 Respiratory Rate 16 06/14/24 21:09 Blood Pressure 107/74 06/14/24 21:09 Pulse Oximetry 95 06/14/24 21:09 Temperature 39.1 C H 06/14/24 21:09 Temperature Source Oral 06/14/24 21:09 Pulse 91 H 06/14/24 21:09 Respiratory Rate 16 06/14/24 21:09 Blood Pressure 107/74 06/14/24 21:09 Blood Pressure Position Sitting 06/14/24 21:09 Pulse Oximetry 95 06/14/24 21:09 Oxygen Delivery Method Room Air 06/14/24 21:09 Oxygen Flow Rate 0 06/14/24 21:09 Medical Decision Making This dictation utilizes [id number] dictation software and may contain unedited grammatical errors. 68 year-old male presents to ED today by POV/ambulating with a chief complaint of fever, cough, headache, body aches with onset 4-5 days ago. States he had a fever of 105F at home, currently 102F on arrival, had ibuprofen and Excedrin migraine at 1400 today. Quality described as generalized malaise, cough, no radiation to shortness of breath/respiratory distress, endorses lung pain only when coughing, denies nausea/vomiting. Severity is described as moderate. Palliating factors include OTC cold meds with mild relief. Provoking factors include nothing specific. Events leading up to the incident/Associated Symptoms: Patient did receive a flu shot last October. Patients' medical history: History of opioid dependence, alcohol dependence in remission, depression migraine, sinusitis, anemia, hypertension heterozygous factor V Leiden carrier, activated protein C resistance, GERD, hyperlipidemia. Family and social history: Denies active drug use or alcohol use. Pertinent exam findings / vital signs include lungs CTA, no respiratory distress, febrile. Differential / pathologies of concern include viral syndrome, flu or COVID, pneumonia, myocarditis, pulmonary embolism given his history of protein C resistance and factor V Leiden family history. Diagnostic studies of: - CBC, CMP, troponin, BNP, D-dimer, PT/PTT, EKG, XR chest, respiratory PCR swab -CBC without leukocytosis, chronic anemia, low lymphocytes, likely viral infection -Trop I, BNP neg -PCR swab shows positive for flu A -EKG NSR, no S1Q3T3, no ischemic changes -D-dimer 3800 - ordering CTA -XR Chest question L infiltrate in lingula- follow-up with CTA, question Herrera Hump? -CMP pending at sign-out Interventions of: -1g PO tylenol, 400mg PO ibuprofen. Out of window for tamiflu. ED Course/Assessment/Plan: 68-year-old male presents with 5 days of cough, states his lungs hurt when he coughs, denies overt shortness of breath and is febrile, tested positive for influenza, is a heterozygous carrier of factor V Leiden and has resistance to activated protein C-even though the D-dimer is likely elevated in the setting of his viral illness I think he does need a CTA to rule out, I do not suspect any large saddle PE with a negative troponin and BNP showing no right heart strain, his EKG shows no evidence of ischemia or S1Q3T3, no bacterial pneumonia on chest x-ray. Patient signed out to Dr. Baez with pending CTA, and likely discharge. Findings not consistent with hypoxic respiratory failure, ACS, R-heart strain, sepsis. Disposition of Influenza A. Patient verbalized understanding of the plan and return to ED criteria and engaged in shared decision making. Medical Records Medical records reviewed: Yes I reviewed the patient's medical records. Imaging Data Radiologic Study: Attestation: I personally reviewed and interpreted this imaging study as follows: Imaging: X-Ray Radiologist's impression: Exam: XR Chest Exam date and time: 06/14/2024 9:33 PM Age: 68 years old Clinical indication: Other: Cough x5 days TECHNIQUE: Imaging protocol: Radiologic exam of the chest. Views: 2 views. COMPARISON: CT ABDOMEN PELVIS W 12/05/2023 12:33 PM FINDINGS: Lungs: Lingular/Left lower lobe infiltrate consistent with pneumonia. Pleural spaces: Unremarkable. No pleural effusion. No pneumothorax. Heart/Mediastinum: Unremarkable. No cardiomegaly. Bones/joints: Unremarkable. IMPRESSION: Lingular/left lower lobe pneumonia. Continued follow-up to resolution is recommended Dictated and Authenticated by: Arias Galvez MD. Lab Data Lab results reviewed: Yes I reviewed the patient's lab results. Labs: Laboratory Tests Range/Units 06/14/24 06/14/24 21:21 21:44 WBC (4.4-10.8) 10^3/uL 5.12 RBC (4.36-5.78) 10^6/uL 3.44 L Hgb (13.5-17.5) g/dL 11.3 L Hct (40.0-50.0) % 33.7 L MCV (80-95) fL 98 H MCH (27.0-33.0) pg 32.8 MCHC (32.0-36.0) % 33.5 RDW (11.8-14.1) % 12.2 Plt Count (130-400) 10^3/uL 185 MPV (8.0-11.0) fL 9.0 Immature Gran % % 0.4 Neutrophils % % 67.3 Lymphocytes % % 16.4 Monocytes % % 13.5 Eosinophils % % 2.0 Basophils % % 0.4 Nucleated RBC % (0.0-0.3) % 0.0 Absolute Neutrophils (1.2-6.7) 10^3/uL 3.45 Absolute Lymphocytes (1.2-3.4) 10^3/uL 0.84 L Absolute Monocytes (0.1-0.8) 10^3/uL 0.69 Absolute Eosinophils (0.0-0.7) 10^3/uL 0.10 Absolute Basophils (0.0-0.2) 10^3/uL 0.02 PT (9.1-11.1) sec 9.6 INR (0.9-1.1) 1.0 APTT (20.6-30.2) sec 33.7 H D-Dimer (<500) ng/mlFEU 3814 H Sodium Cancelled Potassium Cancelled Chloride Cancelled Carbon Dioxide Cancelled Anion Gap Cancelled BUN Cancelled Creatinine Cancelled Est GFR (CKD-EPI 2020) Cancelled Glucose Cancelled Calcium Cancelled Total Bilirubin Cancelled AST Cancelled ALT Cancelled Alkaline Phosphatase Cancelled Troponin I (<or=76) ng/L 15 NT-Pro-B Natriuret Pep (<300) pg/mL 93 Total Protein Cancelled Albumin Cancelled COVID-19 Source Nasopharynx SARS-CoV-2 (PCR) (Negative) Negative Influenza Type A (PCR) (Negative) Positive A Influenza Type B (PCR) (Negative) Negative RSV (PCR) (Negative) Negative Quality:SDOH Health Related Social Needs: No Data to Display PFSH All Active Problems (Updated 06/14/24 @ 22:35 by SUKHJINDER Munoz) Influenza A (Acute) BPH w urinary obs/LUTS (Acute) Anticoagulated on Coumadin (Acute) Right hydrocele (Acute) Opioid abuse, in remission (Acute) Right inguinal hernia (Acute) Erectile dysfunction (Acute) JAUN (obstructive sleep apnea) (Chronic) Presence of hip joint prosthesis (Acute) Prediabetes (Acute) Nutritional anemia (Acute) Essential hypertension (Acute) Hernia of abdominal cavity (Acute) Acquired deformity of toe (Acute) Bilateral tinnitus (Acute) Activated protein C resistance (Acute) Obesity (Chronic) Pain in left wrist (Acute) Carpal tunnel syndrome of right wrist (Acute) Localized edema (Acute) GERD with apnea without esophagitis (Acute) Idiopathic osteoarthritis (Acute) Pain, joint, shoulder, right (Acute) Acquired hammer toe of left foot (Acute) Onychomycosis (Acute) Mass of left breast (Acute) Gynecomastia (Acute) Hallux rigidus, left foot (Acute) Arthralgia of left temporomandibular joint (Acute) Increased frequency of urination (Acute) Edema of lower extremity (Acute) Hammertoe of left foot (Acute) Otalgia of left ear (Acute) Bilateral sensorineural hearing loss (Acute) GERD (gastroesophageal reflux disease) (Chronic) HTN (hypertension) (Chronic) Hoarseness (Acute) Hyperlipidemia (Acute) Medical History Disorder of left eustachian tube Psychiatric disorder H/O depression headache Macrocytic anemia Heterozygous factor V Leiden mutation Opioid dependence Alcohol dependence in remission Abdominal hernia UTI symptoms Low back pain Abnormal EKG Seborrheic dermatitis Tinnitus Edema Orthopnea COVID-19 Urinary hesitancy Deviated septum Arthritis of carpometacarpal (CMC) joint of left thumb Internal hemorrhoids Encounter for screening colonoscopy Current Visit- YES Opioid abuse Hemorrhoids Depressive disorder Carpal tunnel syndrome, bilateral Rhinitis, allergic Tobacco use quit 2006 Left foot pain Right shoulder pain Sinusitis Impotence Diverticulitis Factor V Leiden Anemia Alcohol abuse Breast pain, left Sleep apnea uses CPAP Avascular necrosis of bones of both hips Family history of colon cancer Degenerative joint disease of both hips Hx of skin cancer, basal cell Surgical History S/P inguinal herniorrhaphy right Hx of inguinal hernia repair (~02/2024) Right side History of carpal tunnel release bilateral. History of shoulder surgery left rotator cuff. History of hip replacement Bilateral/avascular necrosis. S/P left inguinal hernia repair (~08/12/19) History of placement of ear tubes S/P colonoscopy (~2009) 01/20/18 right toe fusion right foot surgery for congenital defect excision skin lesion Back Family History Father Colon cancer Other Alcohol abuse Pancreatitis Social History Smoking/Tobacco Use Status: Former Tobacco Use Quit Date: 10/02/06 Smoking risk assessment performed?: Yes Alcohol Intake: former Drug use: Current Sobriety Substance use type: heroin Housing: apartment Current gender identity: male Additional Social history: [facility]
[2024-06-14] MEDS: Acetaminophen 500 MG TAB 1000 MG PO (21:22)
[2024-06-14] MEDS: Ibuprofen 400 MG TAB PO (21:22)
--- NOTE | 2024-06-14 21:30 | RT.EKG_ITS ---
APPROVED REPORT Exam: Resting ECG Reason for Exam: baseline/screening Patient Location: E HR:88 bpm ECG Measurements Heart Rate 88 AXIS WI 131 P 31 QRSd 88 QRS 7 QT 341 T 45 QTc 414 Conclusion Sinus rhythm...normal P axis, V-rate 60- 99 Physician: no stemi
[2024-06-14] MEDS: Albuterol HFA 8 GM 60 PUFF INH IH (21:52)
[2024-06-14 21:57] LABS: Abs Immature Grans 0.02 10^3/uL (0.0-0.06); Absolute Basophil Count 0.02 10^3/uL (0.0-0.2); Absolute Lymphocyte Count 0.84 10^3/uL (1.2-3.4); Absolute Monocyte Count 0.69 10^3/uL (0.1-0.8); Absolute Neutrophil Count 3.45 10^3/uL (1.2-6.7); Basophils % 0.4 %; HCT 33.7 % (40.0-50.0); HGB 11.3 g/dL (13.5-17.5); Immature Grans % 0.4 %; Lymphocytes % 16.4 %; MCH 32.8 pg (27.0-33.0); MCHC 33.5 % (32.0-36.0); MCV 98 fL (80-95); Monocytes % 13.5 %; Neutrophils % 67.3 %; Platelet Count 185 10^3/uL (130-400); RBC 3.44 10^6/uL (4.36-5.78); RDW 12.2 % (11.8-14.1); RDW-SD 43.8 fL; WBC 5.12 10^3/uL (4.4-10.8)
[2024-06-14 22:14] LABS: NT-proBNP 93 pg/mL (<300); Troponin I 15 ng/L (<or=76)
[2024-06-14 22:19] LABS: D-Dimer 3814 ng/mlFEU (<500)
[2024-06-14 22:19] LABS: COVID-19 PCR Negative (Negative); Influenza A PCR Positive (Negative); Influenza B PCR Negative (Negative); RSV PCR Negative (Negative)
[2024-06-14 22:20] LABS: PTT Activated 33.7 sec (20.6-30.2); Prothrombin Time 9.6 sec (9.1-11.1)
[2024-06-14 22:21] LABS: Source Nasopharynx
--- NOTE | 2024-06-14 22:30 | DI.CT_ITS ---
Exam(s) CT CHEST PE CTA EXAM: CT CHEST PE CTA CLINICAL HISTORY: elev d-dimer, hx V leiden/factor C. TECHNIQUE: Imaging Protocol: CT angiography of the chest was performed using pulmonary embolus brianda col. Multi planar reconstructions were performed. CONTRAST MATERIAL: Intravenous: Omnipaque 350 Contrast volume: 70 cc COMPARISON: CR,XR XR CHEST 2V PA LATERAL from 06/14/2024 FINDINGS: CHEST: PULMONARY ARTERIES: There are no intraluminal filling defects to suggest acute pulmonary emboli. LUNGS: There are significant areas of infiltrate in the left lung. This involves a large part of the lingular segment of the left lung and there is also mild infiltrate in the left upper lobe adjacent to the major fissure in the apical posterior segment of the left upper lobe. There is also infiltrat e in the lower aspect of the superior segment of the left lower lobe. There is relative sparing of t he basal segments of the left lower lobe. There is a tiny left pleural effusion. In the opposite-right lung there are mild increased markings in the lower lobe but no confluent infil trates and no pleural effusion. MEDIASTINUM: There is some adenopathy in the left hilum as well as subcarinal adenopathy. No adenopa thy in the right hilum. No adenopathy in the anterior mediastinal fat. Partially visualized thyroid unremarkable. CARDIAC: Heart size normal. No pericardial effusion.Caliber of the thoracic aorta is within normal l imits. No dissection. There is no significant shift of the interventricular septum. PARTIALLY VISUALIZED UPPERMOST ABDOMEN: No adrenal masses. Paddock steatosis noted. No splenomegaly . OSSEOUS: No significant osseous lesions.. IMPRESSION: 1. Prominent infiltrate in the left lung, most prominent in the lingular segment but also involving t he apical posterior segment of the left upper lobe as well as the lower aspect of the superior segmen t of the left lower lobe. There is also a tiny left pleural effusion. 2. There is adenopathy in the left hilum and subcarinal region. 3. No evidence of pulmonary emboli nor aortic dissection. RADIATION DOSE DELIVERED: 92.63mGy.cm Total DLP DATA REPOSITORY: All CT scans at this facility are submitted to the National Radiology Data Registry (NRDR) Dose Index Registry (DIR) with the [employer] (ACR). RADIATION OPTIMIZATION: All CT scans at this facility use at least one of these dose optimization te chniques: automated exposure control; mA and/or kV adjustment per patient size (includes targeted exa ms where dose is matched to clinical indication); or iterative reconstruction.
[2024-06-14 22:36] VITALS: BP 154/59; PULSE 94; RESP 16; TEMP 37.3; O2SAT 96
--- NOTE | 2024-06-14 22:39 | DI.VRAD_ITS ---
PROCEDURE INFORMATION: Exam: XR Chest Exam date and time: 06/14/2024 9:33 PM Age: 68 years old Clinical indication: Other: Cough x5 days TECHNIQUE: Imaging protocol: Radiologic exam of the chest. Views: 2 views. COMPARISON: CT ABDOMEN PELVIS W 12/05/2023 12:33 PM FINDINGS: Lungs: Lingular/Left lower lobe infiltrate consistent with pneumonia. Pleural spaces: Unremarkable. No pleural effusion. No pneumothorax. Heart/Mediastinum: Unremarkable. No cardiomegaly. Bones/joints: Unremarkable. IMPRESSION: Lingular/left lower lobe pneumonia. Continued follow-up to resolution is recommended Dictated and Authenticated by: Arias Galvez MD. Orderin Sravani Gray MD
[2024-06-14] MEDS: Omnipaque 350 MG/ML 100 ML BTL IJ (22:54)
[2024-06-14] MEDS: Normal Saline - Diluent 50 ML VIAL IJ (22:55)
[2024-06-14] MEDS: Normal Saline Flush 10 ML SYR IVP (22:55)
[2024-06-14 23:07] LABS: ALT 35 U/L (16-63); AST 24 U/L (15-37); Albumin 2.8 g/dL (3.4-5.0); Alkaline Phosphatase 69 U/L (46-116); Anion Gap 5.1 mmol/L (3-11); BUN 11 mg/dL (7-18); Bilirubin, Total 0.4 mg/dL (0.2-1.0); CO2 27.9 mmol/L (21.0-32.0); CREATININE 0.8 mg/dL (0.70-1.30); Calcium 8.2 mg/dL (8.5-10.1); Chloride 95 mmol/L (98-107); Estimated GFR 97.61 (mL/min/1.73m2); Glucose 93 mg/dL (74-106); Potassium 4.3 mmol/L (3.5-5.1); Sodium 128 mmol/L (136-145); Total Protein 6.4 g/dL (6.4-8.2)
--- NOTE | 2024-06-14 23:28 | DI.VRAD_ITS ---
PROCEDURE INFORMATION: Exam: CTA Chest With Contrast Exam date and time: 06/14/2024 11:02 PM Age: 68 years old Clinical indication: Abnormal findings; Abnormal diagnostic tests; Elevated d-dimer; Elev d-dimer, HX v leiden/factor c TECHNIQUE: Imaging protocol: Computed tomographic angiography of the chest with contrast. Exam focused on the arteries. 3D rendering (Not supervised by radiologist): MIP and/or 3D reconstructed images were created by the technologist. Radiation optimization: All CT scans at this facility use at least one of these dose optimization techniques: automated exposure control; mA and/or kV adjustment per patient size (includes targeted exams where dose is matched to clinical indication); or iterative reconstruction. Contrast material: OMNIPAQUE 350; Contrast volume: 70 ml; Contrast route: INTRAVENOUS (IV); COMPARISON: CR XR CHEST 2V PA LATERAL 06/14/2024 9:33 PM FINDINGS: Pulmonary arteries: Normal. No pulmonary emboli. Aorta: Unremarkable. No aortic aneurysm. No aortic dissection. Lungs: Infiltrate in the lingula and left lower lobe consistent with pneumonia. Ill-defined right lower lobe infiltrate also likely pneumonia. Pleural spaces: Unremarkable. No pneumothorax. No pleural effusion. Heart: Unremarkable. No cardiomegaly. No pericardial effusion. Lymph nodes: Unremarkable. No enlarged lymph nodes. Bones/joints: Unremarkable. No acute fracture. Soft tissues: Unremarkable. IMPRESSION: 1. No evidence for pulmonary embolism. 2. Lingular/left lower lobe and right lower lobe pneumonia. Dictated and Authenticated by: Arias Galvez MD. Orderin Sravani Gray MD
--- NOTE | 2024-06-14 23:55 | W.EDPROG ---
Date of service: 06/14/24 Time of Service: 23:55 Medical Decision Making Patient was signed out to me by Isaac Lassiter. Please refer to his HPI, physical exam, assessment plan., Signout we are awaiting CT scan. CT scan shows no evidence of pulmonary embolism, there is a notable pneumonia. Patient was a smoker in the past, he does have an allergy to Bactrim. With his risk factors we we will start him on doxycycline and Augmentin for treatment of bacterial pneumonia on top of viral infection. It was discussed with the patient prior that he was not a candidate for Tamiflu. Patient will be discharged home. The lungs patient does have a reported uncertain allergy to cephalosporins, but he does not remember what the reaction was. He states he has tolerated penicillins in the past without any difficulty or reaction. Discussed red flags for which to return. I have extensively reviewed the treatment plan and discharge instructions with the patient. I have addressed all patient concerns at this time. The patient was made aware of what symptoms to monitor for that would warrant a return to the emergency department. Discussed the plan with the patient, they demonstrate verbal understanding and agreement with our assessment and plan at this time. The documentation in this chart was dictated using VerbalizeIt dictation software. Please excuse any dictation errors. FINDINGS: Pulmonary arteries: Normal. No pulmonary emboli. Aorta: Unremarkable. No aortic aneurysm. No aortic dissection. Lungs: Infiltrate in the lingula and left lower lobe consistent with pneumonia. Ill-defined right lower lobe infiltrate also likely pneumonia. Pleural spaces: Unremarkable. No pneumothorax. No pleural effusion. Heart: Unremarkable. No cardiomegaly. No pericardial effusion. Lymph nodes: Unremarkable. No enlarged lymph nodes. Bones/joints: Unremarkable. No acute fracture Soft tissues: Unremarkable. IMPRESSION: 1. No evidence for pulmonary embolism. 2. Lingular/left lower lobe and right lower lobe pneumonia. Thank you for allowing us to participate in the care of your patient. Dictated and Authenticated by: Arias Galvez MD 06/14/2024 11:28 PM Eastern Time ([place] & [place]) Quality:SDOH Health Related Social Needs: No Data to Display Discharge Plan Disposition Patient Disposition: Home Condition: Stable Discharge Details Clinical Impression: Influenza A, Pneumonia Primary Care Provider: Bert Heard ED Provider: Isaac Baez Home Meds and New Rx's Prescriptions: New amoxicillin-pot clavulanate 875-125 mg tablet 1 tab PO BID 7 Days Qty: 14 0RF doxycycline hyclate 100 mg capsule 100 mg PO BID 7 Days Qty: 14 0RF Continued lisinopril 10 mg tablet 10 mg PO DAILY saw palmetto 500 mg capsule 500 mg PO BID Rx Instructions: give with food (meal/snack) tamsulosin 0.4 mg capsule 0.4 mg PO DAILY furosemide 20 mg tablet 20 mg PO DAILY Patient Comments: 02/18/24 Pt states hasnt taken since approx 01/03/24 ketoconazole 2 % cream 1 applic topical DAILY Qty: 120 6RF Rx Instructions: Apply to toenails once daily omega-3 fatty acids-fish oil [Fish Oil] 360-1,200 mg capsule 1 cap PO DAILY mecobalamin (vitamin B12) 1,000 mcg tablet,chewable 1,000 mcg PO DAILY cholecalciferol (vitamin D3) 25 mcg (1,000 unit) capsule 25 mcg PO DAILY atorvastatin 40 mg tablet 40 mg PO DAILY methadone [Methadose] 10 mg/mL concentrate 85 mg PO DAILY ketoconazole 2 % shampoo 1 applic topical ONCE sildenafil 100 mg tablet 100 mg PO DAILY PRN Rx Instructions: administer 30 minutes to 4 hours before activity multivitamin Tablet 1 tab PO DAILY cyclobenzaprine 10 mg tablet 10 mg PO HS PRN Discharge Instructions Instructions: Community-Acquired Pneumonia, Adult (DC), Flu, Adult ED Additional Instructions: At this time you have influenza, but you also have evidence of pneumonia. Please take the antibiotics as directed. They have been sent to your pharmacy on file please drink plenty fluids and stay well-hydrated. If you notice any worsening of your symptoms, or any new symptoms such as vomiting, diarrhea, fever, chills, shortness of breath, chest pain, numbness, weakness, or fainting , please return immediately to the emergency department for reevaluation. Please follow up with your primary care provider as soon as possible for reassessment and reevaluation. As always, it was a pleasure participating in your medical care today. Referrals: Bert Heard [Primary Care Provider] -
[2024-06-15] MEDS: Amox. 875/Clav. 125, 2 TABS/BTL 1 TAB PO (00:05)
[2024-06-15] MEDS: Doxycycline Hyclate 100 MG, 2 CAPS/BTL PO (00:06)
[2024-06-15 00:10] VITALS: BP 118/54; PULSE 81; TEMP 37.9; O2SAT 94
[2024-06-15 00:18] VITALS: BP 136/52; PULSE 87; RESP 16; O2SAT 97
== END 2024-06-15 00:18 | disposition home or self-care (01) ==
PROVIDERS: Physician Assistant; Emergency Provider Student in an Organized Health Care Education/Training Program; PCP Student in an Organized Health Care Education/Training Program
DX: J10.00 Influenza due to other identified influenza virus with unspecified type of pneumonia (principal); I10 Essential (primary) hypertension; E78.5 Hyperlipidemia, unspecified; D68.51 Activated protein C resistance; Z87.891 Personal history of nicotine dependence
CPT/HCPCS: 00123; 36415; 71275; 80053; 87637; 93005; 99285; 71046; 83880; 84484; 85025; 85379; 85610; 85730; 93010; 99284; J3490

== ENCOUNTER → 2024-07-21 15:28 | Outpatient (BNVA) | payer MEDICARE, SELFPAY | PROVIDERS: PCP Student in an Organized Health Care Education/Training Program; Referring Provider Student in an Organized Health Care Education/Training Program; Visit Provider Nurse Practitioner Gerontology | DX: N40.1 Benign prostatic hyperplasia with lower urinary tract symptoms (principal); N13.8 Other obstructive and reflux uropathy; N52.9 Male erectile dysfunction, unspecified; R39.9 Unspecified symptoms and signs involving the genitourinary system | CPT/HCPCS: 99214; 51798 ==

== ENCOUNTER 2024-07-24 18:02 | Outpatient (CLI) | payer MEDICARE, SELFPAY ==
--- NOTE | 2024-07-24 18:53 | DI.RAD_ITS ---
Exam(s) XR CHEST 2V PA LATERAL EXAM: XR CHEST 2V PA LATERAL CLINICAL HISTORY: ICD-10: R05.3 Chronic chough TECHNIQUE: 2D digital imaging was performed of the chest. Two images were obtained. PA and lateral views were obtained. COMPARISON: CR,XR XR CHEST 2V PA LATERAL from 06/14/2024 FINDINGS: MEDIASTINUM: Normal. HEART: Normal. PULMONARY VASCULATURE: Normal. LUNGS: Near complete resolution of the left lingular infiltrate with a small persistent opacity prese nt. The lungs are otherwise clear. PLEURAL SPACE: No pleural effusion or pneumothorax. BONE:Within normal limits for the patient's age. OTHER FINDINGS:Normal. IMPRESSION: 1. Near complete resolution of the left lingular infiltrate with a small residual opacity present. F ollow-up chest x-ray should be considered to document complete resolution. 2. No new infiltrates. DATA REPOSITORY: RADIATION DOSE DELIVERED:
--- NOTE | 2024-07-24 20:04 | DI.VRAD_ITS ---
PROCEDURE INFORMATION: Exam: XR Chest Exam date and time: 07/24/2024 6:42 PM Age: 68 years old Clinical indication: Chronic cough TECHNIQUE: Imaging protocol: Radiologic exam of the chest. Views: 2 views. COMPARISON: CT CHEST PE CTA 06/14/2024 11:02 PM FINDINGS: Lungs: Lingular segment left upper lobe with mild consolidation concerning for an area of infiltrate or atelectasis. There was an infiltrate seen in this region 06/14/[address] Consider some mild residual consolidation versus recurrent infiltrate. Right lung is clear. Pleural spaces: No pleural effusion. Heart/Mediastinum: Normal heart size. No mediastinal widening. Bones/joints: Degenerative thoracic spine. Mild dextroscoliosis. IMPRESSION: 1. Mild consolidation lingular segment of left upper lobe which may represent residual infiltrate or residual atelectasis. Please see CT 06/14/2024. 2. Right lung is clear. 3. No pleural effusion. 4. Degenerative thoracic spine features. Dictated and Authenticated by: Rolly Childress MD. Orderin Michael Gardner MD
== END 2024-07-24 18:03 | disposition home or self-care (01) ==
LOC: LBN 18:03
PROVIDERS: PCP Student in an Organized Health Care Education/Training Program; Visit Provider Physician Assistant Medical
DX: R05.3 Chronic cough (principal)
CPT/HCPCS: 71046

== ENCOUNTER 2024-08-12 22:15 | Outpatient (REF) | payer MEDICARE, SELFPAY ==
[2024-08-17 22:43] LABS: Blastomyces Ab, EIA Negative (Negative)
== END 2024-08-12 22:16 | disposition home or self-care (01) ==
LOC: NCHCN 22:15
PROVIDERS: PCP Student in an Organized Health Care Education/Training Program; Visit Provider Family Medicine
DX: J18.9 Pneumonia, unspecified organism (principal)
CPT/HCPCS: 86612; 86631; 86632

== ENCOUNTER 2024-08-13 14:08 | Outpatient (REF) | payer MEDICARE, SELFPAY ==
[2024-09-10 10:36] LABS: Fungus Smear No Fungi Seen
== END 2024-08-13 14:09 | disposition home or self-care (01) ==
LOC: NCHCN 14:08
PROVIDERS: PCP Student in an Organized Health Care Education/Training Program; Visit Provider Family Medicine
DX: J18.9 Pneumonia, unspecified organism (principal)
CPT/HCPCS: 87102; 87206; 87070; 87205

== ENCOUNTER → 2024-09-07 13:28 | Outpatient (BNVA) | payer MEDICARE, SELFPAY | PROVIDERS: PCP Student in an Organized Health Care Education/Training Program; Referring Provider Student in an Organized Health Care Education/Training Program; Visit Provider Internal Medicine Pulmonary Disease | DX: R91.8 Other nonspecific abnormal finding of lung field (principal); G47.33 Obstructive sleep apnea (adult) (pediatric); R05.9 Cough, unspecified | CPT/HCPCS: 90471; 99215; 90684 ==

== ENCOUNTER 2024-09-18 00:39 | Outpatient (CLI) | payer MEDICARE, SELFPAY ==
--- NOTE | 2024-09-18 08:00 | DI.CT_ITS ---
Exam(s) CT CHEST WO EXAM: CT CHEST WO CLINICAL HISTORY: Pulmonary infiltrate, hx [id number]. TECHNIQUE: Imaging protocol: Axial computed tomography images were obtained and coronal and sagittal reformatted images were created and reviewed. Lung Computer Aided Detection (CAD) was utilized. COMPARISON: CT CT CHEST PE CTA from 06/14/2024 CR,XR XR CHEST 2V PA LATERAL from 07/24/2024 FINDINGS: Tracheobronchial tree: Patent where visualized. No bronchiectasis is present. Pulmonary parenchyma: There has been near complete resolution of the infiltrates with a small area of consolidation/scarring in the left lingula. No new infiltrates are present. There is a calcified granuloma in the right lung. Mediastinum and [place]: No dominant adenopathy or fluid collection. The esophagus is unremarkable. Thyroid gland: Unremarkable. Pleura: No effusion or pneumothorax. Heart: The heart is not dilated. Coronary artery calcifications are present. No pericardial effusion. Aorta: Thoracic aorta non-dilated. Mild atherosclerotic calcification is present. Upper abdomen: Unremarkable. Lymph nodes: Within normal limits. Soft tissues: Mild gynecomastia is present. Bones:Within normal limits for the patient's age. IMPRESSION: 1. Near complete resolution of the pulmonary infiltrates with a small residual area of consolidation or scarring in the left lingula. 2. No new infiltrates are seen. RADIATION DOSE DELIVERED: 202.69mGy.cm Total DLP 202.69mGy.cm Total DLP DATA REPOSITORY: All CT scans at this facility are submitted to the National Radiology Data Registry (NRDR) Dose Index Registry (DIR) with the [employer] ([employer]). RADIATION OPTIMIZATION: All CT scans at this facility use at least one of these dose optimization techniques: automated exposure control; mA and/or kV adjustment per patient size (includes targeted exams where dose is matched to clinical indication); or iterative reconstruction.
== END 2024-09-18 00:59 ==
LOC: DI 00:39
PROVIDERS: PCP Student in an Organized Health Care Education/Training Program; Visit Provider Advanced Practice Midwife
DX: R91.8 Other nonspecific abnormal finding of lung field (principal)
CPT/HCPCS: 71250

== ENCOUNTER → 2024-09-30 15:28 | Outpatient (BNVA) | payer MEDICARE, SELFPAY | PROVIDERS: PCP Student in an Organized Health Care Education/Training Program; Referring Provider Student in an Organized Health Care Education/Training Program; Visit Provider Podiatrist | DX: L60.0 Ingrowing nail (principal); M79.672 Pain in left foot | CPT/HCPCS: 11750 ==

== ENCOUNTER 2024-10-07 16:23 | Outpatient (REF) | payer MEDICARE, SELFPAY ==
[2024-10-07 16:06] LABS: Abs Immature Grans 0.02 10^3/uL (0.0-0.06); HCT 32.3 % (40.0-50.0); HGB 11.0 g/dL (13.5-17.5); Immature Grans % 0.4 %; MCH 32.7 pg (27.0-33.0); MCHC 34.1 % (32.0-36.0); MCV 96 fL (80-95); MPV 9.2 fL (8.0-11.0); Platelet Count 213 10^3/uL (130-400); RBC 3.36 10^6/uL (4.36-5.78); RDW 12.3 % (11.8-14.1); RDW-SD 43.3 fL; WBC 4.99 10^3/uL (4.4-10.8)
[2024-10-07 16:20] LABS: Iron 83 ug/dL (65-175); Total Iron Binding Capacity 328 ug/dL (250-450); Transferrin Sat 25 % (20-55)
[2024-10-07 16:37] LABS: Hemoglobin A1C 6.1 % (<5.7)
[2024-10-07 16:47] LABS: Cholesterol 149 mg/dL (<200); Ferritin 68 ng/mL (26-388); HDL Cholesterol 80 mg/dL (>or=40); Vitamin B12 802 pg/mL (193-986); Vitamin D 25 Total 31 ng/mL (30-100)
[2024-10-07 17:00] LABS: Folate > 20.0 ng/mL (8.6-20.0); Triglyceride <25 mg/dL (<150)
[2024-10-07 17:11] LABS: LDL CHOLESTEROL 62 mg/dL (<100)
== END 2024-10-07 16:24 | disposition home or self-care (01) ==
LOC: NCHCN 16:23
PROVIDERS: PCP Student in an Organized Health Care Education/Training Program; Visit Provider Student in an Organized Health Care Education/Training Program
DX: E78.5 Hyperlipidemia, unspecified (principal); D53.9 Nutritional anemia, unspecified; R73.03 Prediabetes; E55.9 Vitamin D deficiency, unspecified
CPT/HCPCS: 80061; 82306; 83721; 82607; 82728; 82746; 83036; 83540; 83550; 85025